=== PATIENT | female | born 1945 | race Caucasian/White ===

== ENCOUNTER 2020-08-03 09:22 | Outpatient (CLI) | payer MEDICARE, SELFPAY ==
--- NOTE | ~2020-08-03 | MM_ITS ---
EXAMINATION: MM screening falguni BI w thomas HISTORY: Screening mammogram, history of right breast cancer TECHNIQUE: Craniocaudal and mediolateral oblique 3-D tomosynthesis images were obtained and synthetic 2-D images were generated. CAD analysis was submitted and interpreted. COMPARISON: 07/31/2019, 07/04/2018, 06/06/2017 BREAST PARENCHYMAL COMPOSITION: The breasts are almost entirely fatty. FINDINGS: Scattered benign-appearing calcifications are present. There is no evidence of suspicious m ass, calcification, or architectural distortion to suggest malignancy in either breast. There has bee n no suspicious interval change. IMPRESSION: 1. No mammographic evidence of malignancy. 2. Recommend routine screening mammography in one year. BI-RADS Category 2: Benign finding(s). Reviewed, dictated and finalized at location A.
== END 2020-08-03 09:23 | disposition home or self-care (01) ==
LOC: CHSIMG 09:26
PROVIDERS: PCP Internal Medicine; Visit Provider Internal Medicine
DX: Z12.31 Encounter for screening mammogram for malignant neoplasm of breast (principal)
CPT/HCPCS: 77063; 77067

== ENCOUNTER 2021-02-15 09:38 | Outpatient (CLI) | payer MEDICARE, SELFPAY ==
[2021-02-15 14:40] LABS: SARS-CoV-2 RNA PCR Negative (Negative)
== END 2021-02-15 09:39 | disposition home or self-care (01) ==
LOC: CHSLAB 09:44
PROVIDERS: PCP Internal Medicine; Visit Provider Internal Medicine Critical Care Medicine
DX: Z01.812 Encounter for preprocedural laboratory examination (principal); Z20.822 Contact with and (suspected) exposure to COVID-19
CPT/HCPCS: C9803; U0003; U0005

== ENCOUNTER 2021-02-19 19:39 | Outpatient (CLI) | payer MEDICARE, SELFPAY ==
--- NOTE | 2021-02-25 16:42 | WPDSLEEPSTUD ---
Sleep Study Ordering Provider: Sudhir Galvez MD Interpreting Physician: Parish Barnett MD Sleep Study Type: Split Polysomnogram Height: 1.55 m Weight: 91.172 kg Body Mass Index: 38.0 Neck Circumference (inches): 16.5 [place]: 2 Reason for Sleep Study Patient reports history of loud snoring, poor quality of sleep, history of falling asleep during daytime and non refreshing sleep. Sleep History Loud snoring, non-refreshing sleep and daytime sleepiness. FORMERLY [facility], [facility] Past Medical History Medical History (Updated 11/09/20 @ 13:43 by David Kennedy DO) Arthritis Hyperlipemia Hypertension Surgical History Surgical History H/O cataract extraction H/O: S/P medial meniscus repair of left knee Status post right knee replacement Family History Family History Mother Cerebrovascular accident Father Family history of congestive heart failure Other Family history of arthritis Family history of malignant neoplasm Hypertension Social History Social History Smoking status: Former smoker Alcohol intake: current Spiritual care concerns: No Medications Home Medications Medication Instructions Recorded Confirmed Type acetaminophen 300 mg-codeine 15 mg 1 tablet PO Q6H PRN 02/03/20 11/09/20 History tablet acetaminophen 500 mg tablet 500 mg PO Q6H PRN 02/03/20 11/09/20 History amlodipine 10 mg tablet 10 mg PO DAILY 02/03/20 11/09/20 History aspirin 81 mg chewable tablet 81 mg PO DAILY 02/03/20 11/09/20 History diphenhydramine HCl 25 mg capsule 50 mg PO Q6H PRN cap 02/03/20 11/09/20 History evnruyxexle-ugulyufeuph-nks C-hannah tablet PO 02/03/20 11/09/20 History 250 mg-200 mg-30 mg-2.5 mg tablet magnesium oxide 500 mg capsule 500 mg PO DAILY 02/03/20 11/09/20 History nortriptyline 10 mg capsule 30 mg PO DAILY cap 02/03/20 11/09/20 History bxbff-2e-goq-epa-fish oil-vit D3 cap PO 02/03/20 11/09/20 History 350 mg-400 mg-1,000 unit capsule spironolactone 50 mg tablet 50 mg PO DAILY 02/03/20 11/09/20 History atorvastatin 40 mg tablet 40 mg PO DAILY #90 tablet 05/01/20 11/09/20 Rx ascorbic acid (vitamin C) 250 mg 250 mg PO DAILY 05/11/20 11/09/20 History tablet garlic 200 mg tablet 200 mg PO DAILY 05/11/20 11/09/20 History memantine 10 mg tablet 10 mg PO QPM 05/11/20 11/09/20 History multivitamin with minerals 1 tablet PO DAILY 05/11/20 11/09/20 History metformin 500 mg tablet 500 mg PO BID 11/09/20 11/09/20 History Sleep Procedure Patient underwent an overnight polysomnographic evaluation using a split night protocol. Sleep Architecture Diagnostic study - total recording time 197 minutes, total sleep time 137 minutes, sleep efficiency 69.7%. Sleep latency 13 minutes, REM latency 173 minutes. Awake after sleep onset 46 minutes, stage N1 9.8%, N2 82.2%, N3 0%, stage R 7 0.9%. Supine sleep 53.8%, supine REM sleep 3.2%. Treatment study- total recording time 240 minutes, total sleep time 205 minutes, sleep efficiency 85.3%. Sleep latency 16 minutes, REM latency 97 minutes. Awake after sleep onset 19 minutes, stage N1 7.8%, N2 66.6%, N3 0%, stage R 20 5.6%. Supine sleep 96.8%, supine REM sleep 15.3%. Respiratory Analysis CMS criteria used Diagnostic study -patient had 15 apneas with index 6.5, 14 obstructive and 1 central. There were 86 hypopneas with index 37.6. AHI 44.1. REM index 77, non-REM index 41.3 supine index 66.5, nonsupine index 18. Treatment study -during titration patient had 25 apneas with index 7.3, 5 obstructive, 20 central. There were 69 hypopneas with index 20.2, AHI 27.5. REM index 52.6, non-REM index 18.9. Supine index 25.1 nonsupine index 101.8. Arousals Diagnostic study- total arousals 125 with index 38.1, spontaneous arousals 26, snores arousals 42, hypopnea arousals 45, apnea arousals
[2021-02-25 17:13] VITALS: BMI 38.0
== END 2021-02-19 19:40 | disposition home or self-care (01) ==
LOC: CHSCSM 19:41
PROVIDERS: PCP Internal Medicine; Visit Provider Internal Medicine
DX: G47.30 Sleep apnea, unspecified (principal)
CPT/HCPCS: 95811

== ENCOUNTER 2021-03-03 14:30 | Outpatient (RCR) | payer MEDICARE, SELFPAY ==
[2021-02-04 12:38] VITALS: BMI 38.8
[2021-02-04 12:44] VITALS: BMI 38.8
== END 2021-04-21 14:54 | disposition home or self-care (01) ==
LOC: ANHDMC 14:30
PROVIDERS: PCP Internal Medicine; Visit Provider Internal Medicine
DX: E11.9 Type 2 diabetes mellitus without complications (principal); I10 Essential (primary) hypertension; Z71.89 Other specified counseling; Z71.3 Dietary counseling and surveillance
CPT/HCPCS: 97802; G0108; G0109

== ENCOUNTER 2021-05-18 08:55 | Outpatient (RCR) | payer MEDICARE, SELFPAY | END 2021-05-18 10:10 | disposition home or self-care (01) | LOC: ANHDMC 08:55 | PROVIDERS: PCP Internal Medicine; Visit Provider Internal Medicine | DX: E11.9 Type 2 diabetes mellitus without complications (principal); I10 Essential (primary) hypertension; Z71.89 Other specified counseling | CPT/HCPCS: G0108 ==

== ENCOUNTER 2021-07-27 11:42 | Outpatient (CLI) | payer MEDICARE, SELFPAY ==
[2021-07-27 12:49] LABS: SARS-CoV-2 RNA PCR Negative (Negative)
== END 2021-07-27 11:43 | disposition home or self-care (01) ==
LOC: CHSLAB 11:45
PROVIDERS: PCP Internal Medicine; Visit Provider Internal Medicine
DX: Z20.822 Contact with and (suspected) exposure to COVID-19 (principal)
CPT/HCPCS: C9803; U0003; U0005

== ENCOUNTER 2021-08-06 08:19 | Outpatient (CLI) | payer MEDICARE, SELFPAY ==
--- NOTE | ~2021-08-06 | MM_ITS ---
EXAMINATION: MM screening falguni BI w thomas HISTORY: Screening mammogram TECHNIQUE: Craniocaudal and mediolateral oblique 3-D tomosynthesis images were obtained and synthetic 2-D images were generated. CAD analysis was submitted and interpreted. COMPARISON: 08/03/2020, 07/31/2019, 07/04/2018 bilateral screening mammogram examinations BREAST PARENCHYMAL COMPOSITION: The breasts are almost entirely fatty. FINDINGS: There is no evidence of suspicious mass, calcification, or architectural distortion to sugg est malignancy in either breast. There has been no suspicious interval change. IMPRESSION: 1. No mammographic evidence of malignancy. 2. Recommend routine screening mammography in one year. BI-RADS Category 1: Negative Reviewed, dictated and finalized at location A.
== END 2021-08-06 08:20 | disposition home or self-care (01) ==
LOC: CHSIMG 08:20
PROVIDERS: PCP Internal Medicine; Visit Provider Internal Medicine
DX: Z12.31 Encounter for screening mammogram for malignant neoplasm of breast (principal)
CPT/HCPCS: 77063; 77067

== ENCOUNTER 2021-08-18 08:32 | Outpatient (CLI) | payer MEDICARE, SELFPAY ==
[2021-08-18 08:51] LABS: Basophils Absolute Auto 0.04 K/mm3 (0.00-0.10); Basophils Percent Auto 0.3 % (0.0-1.0); Eosinophils Absolute Auto 0.27 K/mm3 (0.02-0.50); Eosinophils Percent Auto 2.4 % (1.0-6.0); Hemoglobin 14.5 g/dL (11.7-13.8); Immature Granulocyte Absolute 0.03 K/mm3 (0.00-0.00); Immature Granulocyte Percent A 0.3 % (0.0-0.0); Lymphocytes Absolute Auto 2.24 K/mm3 (1.10-4.50); Lymphocytes Percent Auto 19.5 % (18.0-42.0); Mean Corpuscular Hemoglobin 29.5 pg (27.0-31.0); Mean Corpuscular Volume 89.6 fL (78.0-102.0); Mean Platelet Volume 10.6 fl (9.2-11.8); Monocytes Absolute Auto 0.58 K/mm3 (0.10-0.90); Monocytes Percent Auto 5.1 % (2.0-11.0); Neutrophils Absolute Auto 8.3 K/mm3 (1.7-7.2); Neutrophils Percent Auto 72.4 % (50.0-70.0); Platelet Count Result 274 K/mm3 (150-420); Red Blood Count 4.91 M/mm3 (4.20-5.40); Red Cell Distribution Width 14.1 % (11.6-14.4); White Blood Count 11.5 K/mm3 (4.8-10.8)
[2021-08-18 09:25] LABS: Alanine Aminotransferase 29 U/L (14-59); Albumin Level 4.2 g/dL (3.4-5.0); Alkaline Phosphatase 67 U/L (46-116); Anion Gap 11 mmol/L (8-16); Aspartate Amino Transferase 14 U/L (15-37); Bilirubin,Total 0.6 mg/dL (0.00-1.00); Blood Urea Nitrogen 20 mg/dL (7-18); Calcium 9.8 mg/dL (8.5-10.1); Carbon Dioxide 23 mmol/L (21-32); Chloride 104 mmol/L (98-108); Cholesterol 129 mg/dL (0-200); Estimated Glomerular Filt Rate 47; Glucose 123 mg/dL (70-99); HDL Direct 41 mg/dL (40-60); LDL Cholesterol Calculated 59 mg/dL (<130); Osmolality Calculated 289 mOsm/kg (285-295); Potassium 4.4 mmol/L (3.5-5.1); Sodium 138 mmol/L (136-145); Total Protein 7.2 g/dL (6.4-8.2); Triglycerides 145 mg/dL (0-150)
== END 2021-08-18 08:33 | disposition home or self-care (01) ==
PROVIDERS: PCP Internal Medicine; Visit Provider Internal Medicine
DX: E11.9 Type 2 diabetes mellitus without complications (principal); I10 Essential (primary) hypertension
CPT/HCPCS: 36415; 80053; 80061; 83036; 85025

== ENCOUNTER 2022-01-19 08:15 | Outpatient (CLI) | payer MEDICARE, SELFPAY ==
[2022-01-19 08:31] LABS: Basophils Absolute Auto 0.02 K/mm3 (0.00-0.10); Basophils Percent Auto 0.1 % (0.0-1.0); Hematocrit 42.8 % (35.0-42.0); Hemoglobin 13.8 g/dL (11.7-13.8); Immature Granulocyte Absolute 0.13 K/mm3 (0.00-0.00); Immature Granulocyte Percent A 0.9 % (0.0-0.0); Lymphocytes Absolute Auto 1.52 K/mm3 (1.10-4.50); Lymphocytes Percent Auto 10.3 % (18.0-42.0); Mean Corpuscular HGB Conc 32.2 g/dL (32.0-36.0); Mean Corpuscular Hemoglobin 29.7 pg (27.0-31.0); Mean Corpuscular Volume 92.2 fL (78.0-102.0); Mean Platelet Volume 10.3 fl (9.2-11.8); Monocytes Absolute Auto 0.75 K/mm3 (0.10-0.90); Monocytes Percent Auto 5.1 % (2.0-11.0); Neutrophils Absolute Auto 12.3 K/mm3 (1.7-7.2); Neutrophils Percent Auto 83.6 % (50.0-70.0); Platelet Count Result 265 K/mm3 (150-420); Red Blood Count 4.64 M/mm3 (4.20-5.40); Red Cell Distribution Width 13.7 % (11.6-14.4); White Blood Count 14.7 K/mm3 (4.8-10.8)
[2022-01-19 08:45] LABS: Hemoglobin A1C 6.3 % (<5.7)
[2022-01-19 09:10] LABS: Alanine Aminotransferase 40 U/L (14-59); Albumin Level 3.9 g/dL (3.4-5.0); Alkaline Phosphatase 73 U/L (46-116); Anion Gap 9 mmol/L (8-16); Aspartate Amino Transferase 12 U/L (15-37); Bilirubin,Total 0.4 mg/dL (0.00-1.00); Blood Urea Nitrogen 31 mg/dL (7-18); Calcium 9.2 mg/dL (8.5-10.1); Carbon Dioxide 25 mmol/L (21-32); Chloride 102 mmol/L (98-108); Cholesterol 144 mg/dL (0-200); Estimated Glomerular Filt Rate 46; Glucose 123 mg/dL (70-99); HDL Direct 57 mg/dL (40-60); LDL Cholesterol Calculated 73 mg/dL (<130); Osmolality Calculated 289 mOsm/kg (285-295); Potassium 4.6 mmol/L (3.5-5.1); Sodium 136 mmol/L (136-145); Total Protein 6.7 g/dL (6.4-8.2); Triglycerides 69 mg/dL (0-150)
== END 2022-01-19 08:16 | disposition home or self-care (01) ==
PROVIDERS: PCP Internal Medicine; Visit Provider Internal Medicine
DX: D72.829 Elevated white blood cell count, unspecified (principal); E11.9 Type 2 diabetes mellitus without complications; I10 Essential (primary) hypertension
CPT/HCPCS: 36415; 80053; 80061; 83036; 85025

== ENCOUNTER 2022-02-28 12:07 | Outpatient (CLI) | payer MEDICARE, SELFPAY ==
--- NOTE | ~2022-02-28 | CT_ITS ---
EXAMINATION: CT brain wo con DATE: 02/28/2022 12:54 INDICATION: Right-sided headache TECHNIQUE: Computed tomography (CT) of the head was performed without intravenous contrast. The dose- length product was 529.67 mGy-cm. Automated exposure control and iterative reconstruction technique w ere employed. COMPARISON: None FINDINGS: Mild generalized atrophy. There are scattered mild periventricular and subcortical white ma tter changes, most likely related to small vessel ischemic disease (microangiopathy). No acute intrac ranial hemorrhage, infarction, mass or mass effect. Paranasal sinuses and mastoids are pneumatized. T here is intracranial atherosclerosis. IMPRESSION: 1. No acute intracranial abnormality. 2: Chronic age-related findings. Reviewed, dictated and finalized at location A.
--- NOTE | ~2022-02-28 | XR_ITS ---
XR_[id number]_[id number] 02/28/2022 12:52 Indication: Neck pain Procedure: 4 views of the cervical spine Comparison: No prior studies for comparison. Findings: There is disc narrowing and endplate degenerative change at C5-6 and C6-7. There is mild mu ltilevel uncinate and facet hypertrophy. No fracture or traumatic malalignment. No prevertebral soft tissue swelling. Odontoid process is normal. There is carotid atherosclerosis. Impression: 1: Mild-moderate cervical spondylosis. Reviewed, dictated and finalized at location A. Impression: 1: Mild-moderate cervical spondylosis.
== END 2022-02-28 12:08 | disposition home or self-care (01) ==
LOC: CHSIMG 12:10
PROVIDERS: PCP Internal Medicine; Visit Provider Internal Medicine
DX: R51.9 Headache, unspecified (principal); M54.2 Cervicalgia; M47.812 Spondylosis without myelopathy or radiculopathy, cervical region
CPT/HCPCS: 70450; 72040

== ENCOUNTER 2022-05-14 10:13 | Outpatient (CLI) | payer MEDICARE, SELFPAY ==
--- NOTE | ~2022-05-14 | MR_ITS ---
EXAMINATION: MR lumbar spine wo con DATE: 05/14/2022 12:45 INDICATION: LUMBAGO . TECHNIQUE: Magnetic resonance imaging (MRI) of the lumbar spine was performed without intravenous con trast. Sequences included sagittal T2-weighted FSE, sagittal T2-weighted FS FSE, sagittal T1-weighted FSE, and axial T2-weighted FSE. COMPARISON: X-ray lumbar spine 11/27/2018, MR lumbar spine 11/07/2018 FINDINGS: The last fully formed and hydrated disc is designated L5-S1. Modic type I change at L1-2. P rominent epidural fat at multiple levels. Grade 1 anterolisthesis of L4 on L5. Lumbar scoliosis. Conu s terminates at T12/L1. Multilevel disc height loss and dehydration. The following disc levels are sp ecifically discussed: T12-L1: The disc does not extend beyond the endplate margin. There is no facet joint osteoarthritis. There is mild neural foraminal stenosis. There is no central canal stenosis. L1-L2: Moderate diffuse bulge. There is moderate facet joint osteoarthritis. There is mild right and severe left neural foraminal stenosis. There is mild central canal stenosis. L2-L3: Posteriorly directed marginal osteophyte secondary to L2-3 degenerative change and fusion. No significant disc bulge There is severe facet joint osteoarthritis. There is moderate bilateral neural foraminal stenosis. There is moderate central canal stenosis. L3-L4: Large diffuse bulge. There is moderate facet joint osteoarthritis. There is mild bilateral mary ral foraminal stenosis. There is moderate central canal stenosis. L4-L5: Minimal bulge. Degenerative endplate changes with lateral fusion. There is severe facet joint osteoarthritis. There is severe right and no left neural foraminal stenosis. There is severe central canal stenosis. L5-S1: Moderate diffuse bulge. There is moderate facet joint osteoarthritis. There is mild bilateral neural foraminal stenosis. There is mild central canal stenosis. IMPRESSION: 1. Severe central canal stenosis at L4-5. 2. Severe neural foraminal narrowing on the left at L1-2, and on the right at L4-5. 3. Multilevel facet arthropathy. 4. Modic type I changes at L1-2, which can be a source of back pain. Reviewed, dictated and finalized at location K. IMPRESSION: 1. Severe central canal stenosis at L4-5. 2. Severe neural foraminal narrowing on the left at L1-2, and on the right at L 4-5. 3. Multilevel facet arthropathy. 4. Modic type I changes at L1-2, which can be a source of back pain.
== END 2022-05-14 10:14 | disposition home or self-care (01) ==
LOC: CHSIMG 10:14
PROVIDERS: PCP Internal Medicine; Visit Provider Nurse Practitioner Family
DX: M54.50 Low back pain, unspecified (principal); M54.10 Radiculopathy, site unspecified
CPT/HCPCS: 72148

== ENCOUNTER 2022-06-28 15:04 | Outpatient (RCR) | payer MEDICARE, SELFPAY ==
--- NOTE | 2022-06-28 15:03 | PTOPEVAL1 ---
Assessment and note entered by Samara Henley DPT Evaluation Information Assessment Status Evaluation Diagnosis Lumbago Onset 06/23/2022 Subjective Information Pt reports that in 2009 she was moving furniture into a house and she slipped on the rainy ground and fell on back. Pt had immediate pain but pain started to slowly improve over time. Since that time, she reports pain has been increasing again. Pain is located in her lower back.She feels like her legs don't work as well as they should. She ahs a brace that she wears when her pain is higher . She has been receiving injections to help. She reports that standing, walking, and housework ( vacuuming) are painful. For relief, patient puts on brace or places hand against her low back, and uses heating pad. Denies numbness/tingling, denies falls but reports that her foot gets caught a lot more when walking, reports weakness in legs. In regards to bowel/bladder changes since flare-up, pt reports some more recent constipation. Pt likes to spend time with her grandchildren, read, and sew and is still able to complete these activities but has to be more careful and slow. Reported Pain Level Pain Score 5: Self Report Assessment PT Clinical Summary Pt presents to physical therapy with low back pain and demonstrates decreased strength, decreased mobility, decreased core stability, an antalgic gait. These deficits make it more challenging for her to effectively walk and stand as needed for playing with her grandkids and performing household activities like vacuuming. She was provided with an HEP focused on improving mobility , core stability, and strength within her tolerance. She will benefit from skilled PT to facilitate symptom relief, address the aforementioned impairments, and return to functional and recreational activities. Plan of Care Interventions Electrical Stimulation,Gait Training,Hot Pack/Cold Pack,Manual Therapy,Neuro Re-education,Patient/ Caregiver Educati,Therapeutic Activities, Therapeutic Exercise PT Services Indicated Yes Treatment Frequency and 2x week for 10 visits Duration These treatments will address the objective and functional deficits as defined above. The patient will be advanced safely and appropriately in order for the patient to progress towards his/her prior level of function. Additional exercises will
--- NOTE | 2022-07-28 14:06 | PTOPDC ---
Assessment and note entered by Adeline Anderson, PT Evaluation Information Assessment Status Evaluation Diagnosis Lumbago Onset 06/23/22 Subjective Information Meredith Boss reports her lower back pain has improved significantly since initiating PT. She reports 0/10 pain currently and reports pain no greater than 5/10. She states most of her pain is in the morning when she first wakes but it subsides after doing her stretches. She feels she has improved 98% overall. Reported Pain Level Pain Score 0: Self Report Assessment PT Clinical Summary Meredith Boss has completed 10 skilled physical therapy visits for low back pain. She is reporting a 98% overall improvement since initiating PT. She notes she has more pain in the morning but it improves with stretches she learned in PT. She objectively demonstrates improved and pain free ROM, improved core and LE strength, improved hamstring flexibility, and resolved tenderness. She will be discharged to an independent [facility]. Plan of Care Interventions Self-Care/Home Management
== END 2022-07-28 09:44 | disposition home or self-care (01) ==
LOC: CHSPT 15:04
PROVIDERS: PCP Internal Medicine; Visit Provider Anesthesiology Pain Medicine
DX: M54.50 Low back pain, unspecified (principal)
CPT/HCPCS: 97014; 97110; 97161; G0283

== ENCOUNTER 2022-08-01 08:54 | Outpatient (CLI) | payer MEDICARE, SELFPAY ==
[2022-08-01 09:06] LABS: Basophils Absolute Auto 0.07 K/mm3 (0.00-0.10); Basophils Percent Auto 0.7 % (0.0-1.0); Eosinophils Absolute Auto 0.46 K/mm3 (0.02-0.50); Eosinophils Percent Auto 4.7 % (1.0-6.0); Hematocrit 40.1 % (35.0-42.0); Hemoglobin 13.3 g/dL (11.7-13.8); Immature Granulocyte Absolute 0.06 K/mm3 (0.00-0.00); Immature Granulocyte Percent A 0.6 % (0.0-0.0); Lymphocytes Absolute Auto 2.04 K/mm3 (1.10-4.50); Lymphocytes Percent Auto 20.8 % (18.0-42.0); Mean Corpuscular HGB Conc 33.2 g/dL (32.0-36.0); Mean Corpuscular Hemoglobin 31.1 pg (27.0-31.0); Mean Corpuscular Volume 93.9 fL (78.0-102.0); Mean Platelet Volume 10.1 fl (9.2-11.8); Monocytes Absolute Auto 0.73 K/mm3 (0.10-0.90); Monocytes Percent Auto 7.4 % (2.0-11.0); Neutrophils Absolute Auto 6.4 K/mm3 (1.7-7.2); Neutrophils Percent Auto 65.8 % (50.0-70.0); Platelet Count Result 256 K/mm3 (150-420); Red Blood Count 4.27 M/mm3 (4.20-5.40); Red Cell Distribution Width 13.6 % (11.6-14.4); White Blood Count 9.8 K/mm3 (4.8-10.8)
[2022-08-01 09:44] LABS: Hemoglobin A1C 5.9 % (<5.7)
[2022-08-01 09:53] LABS: Alanine Aminotransferase 37 U/L (14-59); Albumin Level 3.8 g/dL (3.4-5.0); Alkaline Phosphatase 77 U/L (46-116); Anion Gap 11 mmol/L (8-16); Aspartate Amino Transferase 16 U/L (15-37); Bilirubin,Total 0.6 mg/dL (0.00-1.00); Blood Urea Nitrogen 27 mg/dL (7-18); Calcium 8.9 mg/dL (8.5-10.1); Carbon Dioxide 23 mmol/L (21-32); Chloride 106 mmol/L (98-108); Estimated Glomerular Filt Rate 40; Glucose 144 mg/dL (70-99); Osmolality Calculated 298 mOsm/kg (285-295); Potassium 4.5 mmol/L (3.5-5.1); Sodium 140 mmol/L (136-145); Total Protein 6.6 g/dL (6.4-8.2)
[2022-08-01 09:59] LABS: CRP < 0.2 mg/dL (0.0-0.9)
== END 2022-08-01 08:55 | disposition home or self-care (01) ==
PROVIDERS: PCP Internal Medicine; Visit Provider Internal Medicine
DX: M25.50 Pain in unspecified joint (principal); I10 Essential (primary) hypertension; E11.9 Type 2 diabetes mellitus without complications
CPT/HCPCS: 36415; 80053; 83036; 85025; 86140

== ENCOUNTER 2022-08-09 11:54 | Outpatient (CLI) | payer MEDICARE, SELFPAY ==
--- NOTE | ~2022-08-09 | MM_ITS ---
EXAMINATION: MM screening falguni BI w thomas HISTORY: Screening TECHNIQUE: Craniocaudal and mediolateral oblique 3-D tomosynthesis images were obtained and synthetic 2-D images were generated. CAD analysis was submitted and interpreted. COMPARISON: No prior mammogram is available for comparison at this institution. BREAST PARENCHYMAL COMPOSITION: There are scattered areas of fibroglandular density. FINDINGS: There is no evidence of suspicious mass, calcification, or architectural distortion to sugg est malignancy in either breast. There has been no suspicious interval change. IMPRESSION: 1. No mammographic evidence of malignancy. 2. Recommend routine screening mammography in one year. BI-RADS Category 1: Negative Reviewed, dictated and finalized at location A.
== END 2022-08-09 11:55 | disposition home or self-care (01) ==
LOC: CHSIMG 11:58
PROVIDERS: PCP Internal Medicine; Visit Provider Internal Medicine
DX: Z12.31 Encounter for screening mammogram for malignant neoplasm of breast (principal)
CPT/HCPCS: 77063; 77067

== ENCOUNTER 2022-10-24 08:30 | Outpatient (CLI) | payer MEDICARE, SELFPAY ==
[2022-10-24 08:46] LABS: Basophils Absolute Auto 0.04 K/mm3 (0.00-0.10); Basophils Percent Auto 0.5 % (0.0-1.0); Eosinophils Absolute Auto 0.26 K/mm3 (0.02-0.50); Hematocrit 39.3 % (35.0-42.0); Hemoglobin 12.7 g/dL (11.7-13.8); Immature Granulocyte Absolute 0.03 K/mm3 (0.00-0.00); Immature Granulocyte Percent A 0.4 % (0.0-0.0); Lymphocytes Absolute Auto 1.94 K/mm3 (1.10-4.50); Lymphocytes Percent Auto 22.6 % (18.0-42.0); Mean Corpuscular HGB Conc 32.3 g/dL (32.0-36.0); Mean Corpuscular Hemoglobin 30.2 pg (27.0-31.0); Mean Corpuscular Volume 93.3 fL (78.0-102.0); Mean Platelet Volume 10.3 fl (9.2-11.8); Monocytes Absolute Auto 0.58 K/mm3 (0.10-0.90); Monocytes Percent Auto 6.8 % (2.0-11.0); Neutrophils Absolute Auto 5.7 K/mm3 (1.7-7.2); Neutrophils Percent Auto 66.7 % (50.0-70.0); Platelet Count Result 261 K/mm3 (150-420); Red Blood Count 4.21 M/mm3 (4.20-5.40); Red Cell Distribution Width 12.5 % (11.6-14.4); White Blood Count 8.6 K/mm3 (4.8-10.8)
[2022-10-24 09:54] LABS: Alanine Aminotransferase 28 U/L (14-59); Albumin Level 3.7 g/dL (3.4-5.0); Alkaline Phosphatase 66 U/L (46-116); Anion Gap 11 mmol/L (8-16); Aspartate Amino Transferase 13 U/L (15-37); Bilirubin,Total 0.5 mg/dL (0.00-1.00); Blood Urea Nitrogen 24 mg/dL (7-18); Calcium 8.9 mg/dL (8.5-10.1); Carbon Dioxide 25 mmol/L (21-32); Chloride 103 mmol/L (98-108); Cholesterol 155 mg/dL (0-200); Estimated Glomerular Filt Rate 44; Glucose 145 mg/dL (70-99); HDL Direct 43 mg/dL (40-60); LDL Cholesterol Calculated 83 mg/dL (<130); Osmolality Calculated 295 mOsm/kg (285-295); Potassium 4.5 mmol/L (3.5-5.1); Sodium 139 mmol/L (136-145); Total Protein 6.5 g/dL (6.4-8.2); Triglycerides 143 mg/dL (0-150)
== END 2022-10-24 08:31 | disposition home or self-care (01) ==
LOC: CHSLAB 08:35
PROVIDERS: PCP Internal Medicine; Visit Provider Internal Medicine
DX: I10 Essential (primary) hypertension (principal); E11.9 Type 2 diabetes mellitus without complications; E78.2 Mixed hyperlipidemia
CPT/HCPCS: 36415; 80053; 80061; 83036; 85025

== ENCOUNTER 2022-11-15 09:12 | Outpatient (CLI) | payer MEDICARE, SELFPAY ==
--- NOTE | ~2022-11-15 | XR_ITS ---
Right Hand Technique: PA, oblique, and lateral views were obtained. Clinical History: Pain Findings: No acute fracture or dislocation is seen. Osseous alignment is anatomic. There is advanced degenerative change at the first carpometacarpal joint. There is mild degenerative change of the DIP joints. Soft tissues are unremarkable. Impression: No fracture or dislocation. Advanced degenerative change of the first carpal metacarpal joint. Mild degenerative change of the DIP joints. Reviewed, dictated and finalized at location . 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 Advanced degenerative change of the first carpal metacarpal joint. Mild degenerative change of the DIP joints.
--- NOTE | ~2022-11-15 | XR_ITS ---
Right wrist Technique: PA, oblique, lateral, and ulnar deviation views were obtained. Clinical History: Pain Findings: No acute fracture or dislocation is seen. Osseous alignment is anatomic. There is advanced degenerative change at the first carpometacarpal joint. Soft tissues are unremarkable. Impression: No fracture or dislocation seen. Advanced degenerative change of the first carpal metacarpal joint. Reviewed, dictated and finalized at location . 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 Advanced degenerative change of the first carpal metacarpal joint.
== END 2022-11-15 09:13 | disposition home or self-care (01) ==
LOC: CHSIMG 09:15
PROVIDERS: PCP Internal Medicine; Visit Provider Internal Medicine
DX: S69.91XA Unspecified injury of right wrist, hand and finger(s), initial encounter (principal)
CPT/HCPCS: 73110; 73130

== ENCOUNTER 2023-01-25 08:25 | Outpatient (CLI) | payer MEDICARE, SELFPAY ==
[2023-01-25 08:41] LABS: Basophils Absolute Auto 0.04 K/mm3 (0.00-0.10); Basophils Percent Auto 0.5 % (0.0-1.0); Eosinophils Absolute Auto 0.19 K/mm3 (0.02-0.50); Eosinophils Percent Auto 2.4 % (1.0-6.0); Hematocrit 39.1 % (35.0-42.0); Hemoglobin 12.7 g/dL (11.7-13.8); Immature Granulocyte Absolute 0.03 K/mm3 (0.00-0.00); Immature Granulocyte Percent A 0.4 % (0.0-0.0); Lymphocytes Absolute Auto 1.56 K/mm3 (1.10-4.50); Lymphocytes Percent Auto 19.8 % (18.0-42.0); Mean Corpuscular HGB Conc 32.5 g/dL (32.0-36.0); Mean Corpuscular Hemoglobin 30.2 pg (27.0-31.0); Mean Corpuscular Volume 92.9 fL (78.0-102.0); Mean Platelet Volume 10.7 fl (9.2-11.8); Monocytes Absolute Auto 0.59 K/mm3 (0.10-0.90); Monocytes Percent Auto 7.5 % (2.0-11.0); Neutrophils Absolute Auto 5.5 K/mm3 (1.7-7.2); Neutrophils Percent Auto 69.4 % (50.0-70.0); Platelet Count Result 219 K/mm3 (150-420); Red Blood Count 4.21 M/mm3 (4.20-5.40); Red Cell Distribution Width 13.9 % (11.6-14.4); White Blood Count 7.9 K/mm3 (4.8-10.8)
[2023-01-25 09:20] LABS: Alanine Aminotransferase 31 U/L (14-59); Albumin Level 3.9 g/dL (3.4-5.0); Alkaline Phosphatase 72 U/L (46-116); Anion Gap 11 mmol/L (8-16); Aspartate Amino Transferase 15 U/L (15-37); Bilirubin,Total 0.5 mg/dL (0.00-1.00); Blood Urea Nitrogen 27 mg/dL (7-18); Calcium 9.3 mg/dL (8.5-10.1); Carbon Dioxide 23 mmol/L (21-32); Chloride 105 mmol/L (98-108); Estimated Glomerular Filt Rate 47; Glucose 122 mg/dL (70-99); Osmolality Calculated 294 mOsm/kg (285-295); Potassium 4.2 mmol/L (3.5-5.1); Sodium 139 mmol/L (136-145); Total Protein 6.8 g/dL (6.4-8.2)
== END 2023-01-25 08:26 | disposition home or self-care (01) ==
LOC: CHSLAB 08:27
PROVIDERS: PCP Internal Medicine; Visit Provider Internal Medicine
DX: I10 Essential (primary) hypertension (principal); N18.2 Chronic kidney disease, stage 2 (mild)
CPT/HCPCS: 36415; 80053; 85025

== ENCOUNTER 2023-03-23 08:12 | Outpatient (CLI) | payer MEDICARE, SELFPAY ==
--- NOTE | ~2023-03-23 | MR_ITS ---
EXAMINATION: MR cervical spine wo con DATE: 03/23/2023 09:04 INDICATION: Neck pain. Bilateral upper extremity radiculopathy. TECHNIQUE: Magnetic resonance imaging (MRI) of the cervical spine was performed without intravenous c ontrast. Sequences included sagittal T2-weighted FSE, sagittal T2-weighted FS FSE, sagittal T1-weight ed FSE, axial MERGE, and axial T2-weighted FSE. COMPARISON: None FINDINGS: There is 6 degrees dextrocurvature of cervical spine. Vertebral body heights are normal. Th ere is mildly decreased disc height at C4-C5 and severely decreased disc height at C5-C6 and C6-C7. T he spinal cord signal intensity is normal. The following disc levels are specifically discussed: C2-C3: The disc does not extend beyond the endplate margin. There is no uncovertebral joint osteoarth ritis. There is moderate bilateral facet joint osteoarthritis. There is no neural foraminal stenosis. There is no central canal stenosis. C3-C4: There is a central extrusion. There is mild bilateral uncovertebral joint osteoarthritis. Ther e is severe right and mild left facet joint osteoarthritis. There is mild right neural foraminal sten osis. There is no central canal stenosis. C4-C5: The disc is bulging. There is mild bilateral uncovertebral joint osteoarthritis. There is mode rate bilateral facet joint osteoarthritis. There is mild bilateral neural foraminal stenosis. There i s mild central canal stenosis with ventral indentation of the spinal cord. C5-C6: The disc is bulging. There is severe bilateral uncovertebral joint osteoarthritis. There is se tianna bilateral facet joint osteoarthritis. There is mild right and moderate left neural foraminal frank nosis. There is mild central canal stenosis with ventral indentation of the spinal cord. C6-C7: The disc is bulging. There is severe bilateral uncovertebral joint osteoarthritis. There is se tianna bilateral facet joint osteoarthritis. There is mild bilateral neural foraminal stenosis. There i s mild central canal stenosis. C7-T1: The disc does not extend beyond the endplate margin. There is no uncovertebral joint osteoarth ritis. There is severe bilateral facet joint osteoarthritis. There is no neural foraminal stenosis. T here is no central canal stenosis. IMPRESSION: 1. Severe cervical spondylosis. Reviewed, dictated and finalized at location A.
== END 2023-03-23 08:13 | disposition home or self-care (01) ==
LOC: CHSIMG 08:14
PROVIDERS: PCP Internal Medicine; Visit Provider Internal Medicine
DX: M54.2 Cervicalgia (principal); M54.12 Radiculopathy, cervical region; M43.02 Spondylolysis, cervical region
CPT/HCPCS: 72141

== ENCOUNTER 2023-07-06 17:30 | Emergency (ER) | payer MEDICARE, SELFPAY ==
--- NOTE | ~2023-07-06 | XR_ITS ---
EXAMINATION: XR wrist RT min 3V INDICATION: Right wrist pain TECHNIQUE: Four views of the right wrist are obtained. COMPARISON: 11/15/2022 FINDINGS: There is advanced osteoarthritis at the first carpometacarpal joint. No fracture is identif ied. Calcified atherosclerosis is noted. IMPRESSION: 1. Advanced osteoarthritis at the first carpometacarpal joint without acute osseous abnormality ident ified. Reviewed, dictated and finalized at location F. IMPRESSION: 1. Advanced osteoarthritis at the first carpometacarpal joint without acute oss eous abnormality identified.
--- NOTE | ~2023-07-06 | XR_ITS ---
EXAMINATION: XR shoulder RT min 2V INDICATION: Right shoulder pain TECHNIQUE: Three views of the right shoulder are submitted. COMPARISON: None FINDINGS: There is anterior and inferior dislocation of the humeral head with respect to the glenoid. Moderate osteoarthritis is noted at the acromioclavicular joint. No fracture is identified. Soft tis sues are unremarkable. IMPRESSION: 1. Anterior and inferior dislocation of the humeral head with respect to the glenoid. Reviewed, dictated and finalized at location F. IMPRESSION: 1. Anterior and inferior dislocation of the humeral head with respect to the gl enoid.
--- NOTE | ~2023-07-06 | XR_ITS ---
EXAMINATION: XR shoulder RT min 2V INDICATION: Post reduction TECHNIQUE: Three views of the right shoulder are submitted. COMPARISON: 1755 hours FINDINGS: The previously described glenohumeral dislocation has been reduced. No definite fracture is identified. There is moderate to severe osteoarthritis of the glenohumeral joint and moderate osteoa rthritis of the acromioclavicular joint. Soft tissues are unremarkable. IMPRESSION: 1. Reduced glenohumeral dislocation. Reviewed, dictated and finalized at location F.
[2023-07-06 17:30] VITALS: BP 150/79; PULSE 77; RESP 18; TEMP 36.6; O2SAT 98
[2023-07-06] MEDS: KETOROLAC 30 MG/ML VIAL (*BKC) IM (17:52)
[2023-07-06] MEDS: MORPHINE SULFATE (*CRX) 2 MG/ML INJ IV PUSH (18:14)
--- NOTE | 2023-07-06 18:35 | PC.NURSE ---
1830 right shoulder manipulation per dr damian after morphine. pt feeling better, pain decreased. awaiting repeat xray.
--- NOTE | 2023-07-06 18:56 | ED.UPPEXIN ---
HPI - Extremity Injury (Upper) General Chief Complaint: Extremity Injury, Upper Stated Complaint: fall; right wrist and shoulder pain Time Seen by Provider: 07/06/23 17:37 Source: patient and family Mode of arrival: ambulatory Limitations: no limitations History of Present Illness HPI narrative: this is a 78-year-old female that fell on an outstretched hand earlier this evening causing pain in her right wrist and right shoulder having difficulty with movement there is some numbness and tingling in her fingers but has a strong brisk radial pulse on the right pain level about an 8/10. The patient tripped and fell forward on her right outstretched hand there is some tenderness in the anterior aspect of her right shoulder with a mild deformity. MD complaint: injury to: right Onset (ago): hour(s) Other Extremity Injury: Right: shoulder ( pain and tenderness) Place: home Severity: moderate Severity scale (1-10): 8 Relieving factors: immobilization Exacerbating factors: movement of extremity Context: fall Related Data Home Medications Medication Instructions Recorded Confirmed acetaminophen 300 mg-codeine 15 mg 1 tablet PO Q6H PRN 02/03/20 05/24/21 tablet acetaminophen 500 mg tablet 500 mg PO Q6H PRN 02/03/20 05/24/21 (Tylenol Extra Strength) amlodipine 10 mg tablet 10 mg PO DAILY 02/03/20 05/24/21 aspirin 81 mg chewable tablet 81 mg PO DAILY 02/03/20 05/24/21 diphenhydramine HCl 25 mg capsule 50 mg PO Q6H PRN 02/03/20 05/24/21 (Benadryl) cvwwdwrsdwh-dmwwjlmjomx-jkw C-hannah tablet PO 02/03/20 05/24/21 250 mg-200 mg-30 mg-2.5 mg tablet magnesium oxide 500 mg capsule 500 mg PO DAILY 02/03/20 05/24/21 nortriptyline 10 mg capsule 30 mg PO DAILY 02/03/20 05/24/21 gfbdy-4w-kix-epa-fish oil-vit D3 cap PO 02/03/20 05/24/21 350 mg-400 mg-1,000 unit capsule spironolactone 50 mg tablet 50 mg PO DAILY 02/03/20 05/24/21 ascorbic acid (vitamin C) 250 mg 250 mg PO DAILY 05/11/20 05/24/21 tablet garlic 200 mg tablet 200 mg PO DAILY 05/11/20 05/24/21 memantine 10 mg tablet 10 mg PO QPM 05/11/20 05/24/21 multivitamin with minerals 1 tablet PO DAILY 05/11/20 05/24/21 (Hair,Skin and Nails tablet) metformin 500 mg tablet 500 mg PO DAILY 05/24/21 05/24/21 semaglutide 3 mg tablet 3 mg PO DAILY 05/24/21 05/24/21 Allergies Allergy/AdvReac Type Severity Reaction Status Date / Time neomycin Allergy Severe BLISTERS Verified 12/10/21 11:31 AND ITCHING adhesive Allergy Unknown Unknown Verified 12/10/21 11:31 adhesive tape Allergy Unknown Unknown Verified 12/10/21 11:31 bacitracin Allergy Unknown Unknown Verified 12/10/21 11:31 Bleach (Sodium Hypochlorite) Allergy Unknown Unknown Verified 12/10/21 11:31 polymyxin B Allergy Unknown Unknown Verified 12/10/21 11:31 BLEACH Allergy Unknown SKIN Uncoded 12/10/21 11:31 IRRITATION Review of Systems Review of Systems: All systems reviewed & are unremarkable except as noted in HPI and below PMFSH Past Medical History Medical History (Updated 07/06/23 @ 19:03 by Wes Gooden MD) Arthritis Hyperlipemia Hypertension Surgical History Surgical History H/O cataract extraction H/O: S/P medial meniscus repair of left knee Status post right knee replacement Family History Family History Mother Cerebrovascular accident Father Family history of congestive heart failure Other Family history of arthritis Family history of malignant neoplasm Hypertension Social History Social History Smoking status: Former smoker (quit 2015 or 2018) Alcohol intake: current Spiritual care concerns: No Exam Const: General: healthy appearing Nutritional Appearance: well nourished HENMT: Head: normal to inspection Eyes: Conjunctivae: conjunctivae normal Pupils: Equal, round and reactive pupils presen
--- NOTE | 2023-07-06 18:56 | PC.NURSE ---
report to chloe cueva. all questions answered.
[2023-07-06 19:06] VITALS: BP 132/89; PULSE 77; RESP 16; TEMP 36.6; O2SAT 98
== END 2023-07-06 19:13 | disposition home or self-care (01) ==
PROVIDERS: Emergency Provider Emergency Medicine; PCP Internal Medicine
DX: S43.014A Anterior dislocation of right humerus, initial encounter (principal); E78.5 Hyperlipidemia, unspecified; I10 Essential (primary) hypertension; Z87.891 Personal history of nicotine dependence; W01.0XXA Fall on same level from slipping, tripping and stumbling without subsequent striking against object, initial encounter; Y92.009 Unspecified place in unspecified non-institutional (private) residence as the place of occurrence of the external cause
CPT/HCPCS: 23650; 73030; 73110; 96372; 96374; 99285; A4565; J1885; J2270

== ENCOUNTER 2023-07-13 06:47 | Outpatient (CLI) | payer MEDICARE, SELFPAY ==
--- NOTE | ~2023-07-13 | MR_ITS ---
MRI of the right shoulder Technique: Axial proton-density fat-sat images, coronal proton density fat-sat and T2 fat-sat images, and sagittal T1-weighted and T2 fat-sat images were acquired. 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 There is severe AC joint degenerative change. Coracoclavi cular ligaments are intact. Coracoacromial and coracohumeral ligaments are probably intact. There is complete, full-thickness tear of the supraspinatus tendon. Infraspinatus tendon is intact. S ubscapularis tendon is intact with moderate tendinosis. The intra-articular biceps tendon is probably intact, with severe tendinosis. There is probable degenerative SLAP tear of the labrum, probably extending to the equator anteriorly and posteriorly. There is probable rupture of the inferior glenohumeral ligament at its midportion. There is prominent soft tissue edema extending inferiorly from the glenohumeral joint into the axillary space. Fluid al so passes through the rotator cuff defect into the subacromial/subdeltoid bursa. There is also fluid distention of the subcoracoid bursa. There are probable small loose bodies in the subcoracoid bursa. There is probable atrophy of the supraspinatus muscle belly. There is probable moderate degenerative change of the glenohumeral joint, with extensive chondromalacia. Impression: Complete, full-thickness tear of the supraspinatus tendon, with associated atrophy of the supraspinat us muscle belly. Degenerative SLAP tear of the labrum, probably extending to the greater anteriorly and posteriorly. Left shoulder the inferior glenohumeral ligament at its midportion. This could be related to history of dislocation. Moderate degenerative change of the glenohumeral joint. Severe degenerative change of the AC joint wi th persistent os acromiale. Subcoracoid bursitis with small loose bodies in the subcoracoid bursa. Reviewed, dictated and finalized at location . Impression: Complete, full-thickness tear of the supraspinatus tendon, with associated atro phy of the supraspinatus muscle belly. Degenerative SLAP tear of the labrum, probably extending to the greater anterio rly and posteriorly. Left shoulder the inferior glenohumeral ligament at its midportion. This could be related to history of dislocation. Moderate degenerative change of the glenohumeral joint. Severe degenerative yoanna nge of the AC joint with persistent os acromiale. Subcoracoid bursitis with small loose bodies in the subcoracoid bursa.
== END 2023-07-13 06:48 | disposition home or self-care (01) ==
PROVIDERS: PCP Internal Medicine; Visit Provider Internal Medicine
DX: S43.004A Unspecified dislocation of right shoulder joint, initial encounter (principal); S46.811A Strain of other muscles, fascia and tendons at shoulder and upper arm level, right arm, initial encounter; S43.431A Superior glenoid labrum lesion of right shoulder, initial encounter; M75.51 Bursitis of right shoulder
CPT/HCPCS: 73221

== ENCOUNTER 2023-07-24 10:57 | Outpatient (RCR) | payer MEDICARE, SELFPAY ==
--- NOTE | 2023-07-24 12:02 | PTOPEVAL1 ---
Assessment and note entered by Wes Franklin Evaluation Information Assessment Status Evaluation Diagnosis anterior dislocation right shoulder, right shoulder pain Onset 07/05/23 Subjective Information Pt. reports that she tripped while at home landing on the right arm and dislocating the right shoulder. She went to the ER and the arm was relocated. She states that she saw the ortho last week and was told to begin therapy. She reports that she is having pain through the described lateral brachial region. She describes a dull ache in this area. She states that she is having trouble reaching overhead and behind her back. She reports she cannot currently grape picker a gallon of milk. She is having her assist her with dressing. She reports she is right hand dominant. She states that her goal is to decrease her pain and improve her mobility. Reported Pain Level Pain Score 8: Self Report Assessment PT Clinical Summary Pt. is a 78 year old female who enters the clinic following anterior dislocation of the shoulder. She presents with impaired strength, impaired ROM and pain on this date. Continued skilled PT is indicated in order to improve these areas to allow the pt. to be able to complete all IADL's without assistance from her . Plan of Care Interventions Electrical Stimulation,Hot Pack/Cold Pack,Manual Therapy,Neuro Re-education,Therapeutic Activities, Therapeutic Exercise PT Services Indicated Yes Treatment Frequency and 3x/week x 12 visits Duration These treatments will address the objective and functional deficits as defined above. The patient will be advanced safely and appropriately in order for the patient to progress towards his/her prior level of function. Additional exercises will be introduced and as well as a comprehensive home exercise program upon discharge, if needed, ?to ensure carryover of functional gains achieved in the clinic. This treatment plan has been reviewed and agreement upon by the patient.
--- NOTE | 2023-07-24 12:03 | OPREHPOC ---
Outpatient Therapy Plan of Care This is a Multidisciplinary Plan of Care that may contain components documented by all disciplines (PT, OT, and ST.) PT Problem 1 PT Problem #1 Knowledge Deficit PT Goal 1 Goal Pt. will be independent with a HEP addressing strength and mobility. Target Visit 2 PT Problem 2 PT Problem #2 Impaired Range of Motion PT Goal 1 Goal -Pt. will be able to reach to 145 degrees active right shoulder flexion against gravity -pt. will be able to reach the occiput with the right u.e. -pt. will be able to reach the mid thoracic region with the right u.e. Target Visit 12 PT Goal 2 Goal Pt. will complete all dressing without assistance from her . Target Visit 12 PT Problem 4 PT Problem #4 Impaired Strength PT Goal 1 Goal Pt. will present with 4+/5 gross right u.e. strength.
--- NOTE | 2023-08-14 10:21 | PTOPEVAL1 ---
Assessment and note entered by Wes Franklin Evaluation Information Assessment Status Progress Diagnosis anterior dislocation right shoulder, right shoulder pain Onset 07/05/23 Subjective Information Pt. reports that she is doing better. She states that her pain is less intense. She reports that she is still frustrated Reported Pain Level Pain Score 3: Self Report Assessment PT Clinical Summary pt. has attended a total of 10 treatment sessions. Treatment thus far has focused on improving strength and mobility at the right shoulder. While pt. still struggles with improving movement against gravity, she has demonstrated improvement in regards to lifting the u.e. in a gravity eliminated position indicating gradual strength improvement. Pt. will be attending 1 more treatment session and leave for vacation for a 2 week period. Stressed to the pt. imprving ability to lift the u.e. overhead in gravity eliminated positions and progressing to movement againstr gravity as part of her HEP. We will continue skilled PT at a decreased freqeuncy continuing to improve strength and mobility. Plan of Care Interventions Electrical Stimulation,Hot Pack/Cold Pack,Manual Therapy,Patient/Caregiver Educati,Therapeutic Activities,Therapeutic Exercise PT Services Indicated Yes Treatment Frequency and 1x/week x 6 visits Duration These treatments will address the objective and functional deficits as defined above. The patient will be advanced safely and appropriately in order for the patient to progress towards his/her prior level of function. Additional exercises will be introduced and as well as a comprehensive home exercise program upon discharge, if needed, ?to ensure carryover of functional gains achieved in the clinic. This treatment plan has been reviewed and agreement upon by the patient.
== END 2023-08-16 20:00 | disposition home or self-care (01) ==
LOC: CHSPT 10:57
PROVIDERS: Visit Provider Orthopaedic Surgery
DX: S43.014A Anterior dislocation of right humerus, initial encounter (principal)
CPT/HCPCS: 97014; 97110; 97161; G0283

== ENCOUNTER 2023-08-02 08:23 | Outpatient (CLI) | payer MEDICARE, SELFPAY ==
[2023-08-02 08:55] LABS: Hemoglobin A1C 5.8 % (<5.7)
[2023-08-02 09:10] LABS: Alanine Aminotransferase 15 U/L (14-59); Albumin Level 3.8 g/dL (3.4-5.0); Alkaline Phosphatase 69 U/L (46-116); Anion Gap 13 mmol/L (8-16); Aspartate Amino Transferase 13 U/L (15-37); Bilirubin,Total 0.4 mg/dL (0.00-1.00); Blood Urea Nitrogen 32 mg/dL (7-18); Calcium 9.3 mg/dL (8.5-10.1); Carbon Dioxide 23 mmol/L (21-32); Chloride 105 mmol/L (98-108); Estimated Glomerular Filt Rate 44; Glucose 139 mg/dL (70-99); Osmolality Calculated 300 mOsm/kg (285-295); Potassium 4.2 mmol/L (3.5-5.1); Sodium 141 mmol/L (136-145); Total Protein 6.6 g/dL (6.4-8.2)
== END 2023-08-02 08:24 | disposition home or self-care (01) ==
LOC: CHSLAB 08:25
PROVIDERS: PCP Internal Medicine; Visit Provider Internal Medicine
DX: I10 Essential (primary) hypertension (principal); E11.9 Type 2 diabetes mellitus without complications; N18.2 Chronic kidney disease, stage 2 (mild)
CPT/HCPCS: 36415; 80053; 83036

== ENCOUNTER 2023-09-25 11:43 | Outpatient (CLI) | payer MEDICARE, SELFPAY ==
--- NOTE | ~2023-09-25 | MM_ITS ---
EXAMINATION: MM screening falguni BI w thomas HISTORY: Screening mammogram TECHNIQUE: Craniocaudal and mediolateral oblique 3-D tomosynthesis images were obtained and synthetic 2-D images were generated. CAD analysis was submitted and interpreted. COMPARISON: 08/09/2022, 08/06/2021, 08/03/2020 bilateral screening mammogram examinations BREAST PARENCHYMAL COMPOSITION: There are scattered areas of fibroglandular density. FINDINGS: There is no evidence of suspicious mass, calcification, or architectural distortion to sugg est malignancy in either breast. There has been no suspicious interval change. IMPRESSION: 1. No mammographic evidence of malignancy. 2. Recommend routine screening mammography in one year. BI-RADS Category 1: Negative Reviewed, dictated and finalized at location A. AGE TRUCK DRIVER
== END 2023-09-25 11:44 | disposition home or self-care (01) ==
LOC: CHSIMG 11:44
PROVIDERS: PCP Internal Medicine; Visit Provider Internal Medicine
DX: Z12.31 Encounter for screening mammogram for malignant neoplasm of breast (principal)
CPT/HCPCS: 77063; 77067

== ENCOUNTER 2024-03-11 09:29 | Outpatient (CLI) | payer MEDICARE, SELFPAY ==
[2024-03-11 10:18] LABS: Basophils Absolute Auto 0.02 K/mm3 (0.00-0.10); Basophils Percent Auto 0.3 % (0.0-1.0); Eosinophils Absolute Auto 0.23 K/mm3 (0.02-0.50); Eosinophils Percent Auto 3.2 % (1.0-6.0); Hematocrit 38.1 % (35.0-42.0); Hemoglobin 12.3 g/dL (11.7-13.8); Immature Granulocyte Absolute 0.03 K/mm3 (0.00-0.00); Immature Granulocyte Percent A 0.4 % (0.0-0.0); Lymphocytes Absolute Auto 1.63 K/mm3 (1.10-4.50); Lymphocytes Percent Auto 22.6 % (18.0-42.0); Mean Corpuscular HGB Conc 32.3 g/dL (32-36); Mean Corpuscular Hemoglobin 30.1 pg (27.0-31.0); Mean Corpuscular Volume 93.4 fL (78.0-102.0); Mean Platelet Volume 10.7 fl (9.2-11.8); Monocytes Absolute Auto 0.53 K/mm3 (0.10-0.90); Monocytes Percent Auto 7.4 % (2.0-11.0); Neutrophils Absolute Auto 4.77 K/mm3 (1.70-7.20); Neutrophils Percent Auto 66.1 % (50.0-70.0); Platelet Count Result 232 K/mm3 (150-420); Red Blood Count 4.08 M/mm3 (4.20-5.40); Red Cell Distribution Width 14.1 % (11.6-14.4); White Blood Count 7.2 K/mm3 (4.8-10.8)
[2024-03-11 10:45] LABS: Hemoglobin A1C 5.5 % (<5.7)
[2024-03-11 11:20] LABS: Alanine Aminotransferase 24 U/L (14-59); Albumin Level 3.8 g/dL (3.4-5.0); Alkaline Phosphatase 53 U/L (46-116); Anion Gap 14 mmol/L (4-12); Aspartate Amino Transferase 17 U/L (15-37); Bilirubin,Total 0.4 mg/dL (0.00-1.00); Blood Urea Nitrogen 28 mg/dL (7-18); Carbon Dioxide 23 mmol/L (21-32); Chloride 103 mmol/L (98-108); Estimated Glomerular Filt Rate 42; Glucose 123 mg/dL (70-99); Osmolality Calculated 296 mOsm/kg (285-295); Potassium 4.1 mmol/L (3.5-5.1); Sodium 140 mmol/L (136-145); Total Protein 6.7 g/dL (6.4-8.2)
[2024-03-11 11:25] LABS: CRP < 0.5 mg/dL (0.0-0.9)
[2024-03-11 12:08] LABS: Appearance Urine Clear (Clear); Bilirubin Urine Negative (Negative); Blood Urine Negative (Negative); Color Urine Light Yellow (Yellow); Glucose Urine UA Negative (Negative); Ketones Urine Negative (Negative); Leukocyte Esterase Ur 1+ (Negative); Nitrate Urine Negative (Negative); Protein Urine Trace (Negative); Urobilinogen Urine 0.2 mg/dL (0.2-1.0)
[2024-03-11 12:18] LABS: Add Urine Microscopic? YES; RBC Urine None seen /hpf (0-2); Squamous Epithelial Cell Urine Few /hpf (Few); WBC Urine 0-3 /hpf (0-3)
[2024-03-11 12:19] LABS: Bacteria Urine Trace /hpf
== END 2024-03-11 09:30 | disposition home or self-care (01) ==
LOC: CHSLAB 09:31
PROVIDERS: PCP Internal Medicine; Visit Provider Internal Medicine
DX: E11.9 Type 2 diabetes mellitus without complications (principal); M13.0 Polyarthritis, unspecified
CPT/HCPCS: 36415; 80053; 81001; 83036; 85025; 86140

== ENCOUNTER 2024-10-24 12:04 | Outpatient (CLI) | payer MEDICARE, SELFPAY ==
--- NOTE | ~2024-10-24 | MM_ITS ---
EXAMINATION: MM screening falguni BI w thomas HISTORY: Screening TECHNIQUE: Craniocaudal and mediolateral oblique 3-D tomosynthesis images were obtained and synthetic 2-D images were generated. CAD analysis was submitted and interpreted. COMPARISON: Comparison to multiple prior studies sequentially, with oldest reviewed study dated 07/04. BREAST PARENCHYMAL COMPOSITION: Not dense: There are scattered areas of fibroglandular density. FINDINGS: There is a developing focal asymmetry upper outer quadrant of the right breast, middle thir d. The left breast is stable without evidence for malignancy. IMPRESSION: 1. New right breast asymmetry in the upper outer quadrant, middle third. 2. Additional mammographic views and possible breast ultrasound are recommended. BI-RADS Category 0: Incomplete: Needs additional imaging evaluation. Reviewed, dictated and finalized at location A. PURIFICATION WORKER IMPRESSION: 1. New right breast asymmetry in the upper outer quadrant, middle third. 2. Additional mammographic views and possible breast ultrasound are recommended . BI-RADS Category 0: Incomplete: Needs additional imaging evaluation.
== END 2024-10-24 12:05 | disposition home or self-care (01) ==
LOC: CHSIMG 12:05
PROVIDERS: PCP Internal Medicine; Visit Provider Internal Medicine
DX: Z12.31 Encounter for screening mammogram for malignant neoplasm of breast (principal); R91.8 Other nonspecific abnormal finding of lung field
CPT/HCPCS: 77063; 77067

== ENCOUNTER 2024-10-31 09:01 | Outpatient (CLI) | payer MEDICARE, SELFPAY ==
--- NOTE | ~2024-10-31 | MMUS_ITS ---
EXAMINATION: MM diagnostic falguni RT w thomas, US breast RT limited HISTORY: Right breast asymmetry TECHNIQUE: Additional 3-D tomosynthesis images of the right breast were performed and synthetic 2-D i mages were generated. CAD analysis was submitted and interpreted. High resolution Limited right breas t ultrasound was performed. COMPARISON: Comparison to multiple prior studies sequentially, with oldest reviewed study dated 07/10. BREAST PARENCHYMAL COMPOSITION: Not dense: There are scattered areas of fibroglandular density. FINDINGS: MAMMOGRAPHIC FINDINGS: The area of asymmetry in the upper outer quadrant of the right breast is less apparent with spot comp ression and mediolateral views. No discrete mass or suspicious calcifications are identified. ULTRASOUND: Limited right breast ultrasound: Normal heterogeneous echotexture without focal solid or cystic mass. IMPRESSION: 1. Right breast asymmetry is most likely benign superimposed fibroglandular content. No corresponding abnormality by ultrasound. 2. Recommend 6 month follow-up diagnostic right mammogram BI-RADS category 3, probably benign findings. Reviewed, dictated and finalized at location A. ERY MAKER IMPRESSION: 1. Right breast asymmetry is most likely benign superimposed fibroglandular con tent. No corresponding abnormality by ultrasound. 2. Recommend 6 month follow-up diagnostic right mammogram BI-RADS category 3, probably benign findings.
== END 2024-10-31 09:02 | disposition home or self-care (01) ==
LOC: CHSIMG 09:04
PROVIDERS: PCP Internal Medicine; Visit Provider Internal Medicine
DX: R92.8 Other abnormal and inconclusive findings on diagnostic imaging of breast (principal)
CPT/HCPCS: 76642; 77061; 77065; G0279

== ENCOUNTER 2025-04-16 14:31 | Outpatient (CLI) | payer MEDICARE, SELFPAY ==
--- NOTE | ~2025-04-16 | XR_ITS ---
EXAM/ PROCEDURE: XR lumbar spine 2-3V - 04/16/2025 14:30 CDT HISTORY: 79 years old Female with right hip pain COMPARISON: None available TECHNIQUE: Three view(s) FINDINGS/ IMPRESSION: There are no fractures or dislocations.Multilevel degenerative changes are seen. Levoscoliosis. 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 Atherosclerotic calcifications are seen in the aorta. Reviewed, dictated and finalized at location A.
--- NOTE | ~2025-04-16 | XR_ITS ---
EXAM/ PROCEDURE: XR hip RT min 2V - 04/16/2025 14:30 CDT HISTORY: 79 years old Female with right hip pain COMPARISON: None available TECHNIQUE: Two view(s) FINDINGS/ IMPRESSION: There are no fractures or dislocations.Joint space narrowing, subchondral sclerosis, subchondral cyst formation and osteophyte formation, compatible with mild osteoarthritis. Sclerotic focus in the right pubic symphysis without aggressive surrounding features, is likely a janice ign lesion. Attention on follow-up imaging. Reviewed, dictated and finalized at location A.
--- OUTSIDE RECORDS SUMMARY | 2025-04-16 14:42 | XMS_ITS | Encounter Summary ---
Author Organization [facility] Address [address] [place] [address] Phone Care Team Providers Care Senior Research Project Manager Name Role Phone Sudhir Galvez MD Primary Care Provider [phone] Encounter Details Date Type Department Care Team (Latest Contact Info) Description 03/11/2024 Orders Only [facility] Scanning, Provider Social History Tobacco Use Types Packs/Day Years Used Date Smoking Tobacco: Former Cigarettes 0.5 35 1 974 - 2009 Smokeless Tobacco: Never AUDIT-C Answer Date Recorded Q1: How often do you have a drink containing alc ohol? Monthly or less 12/22/2021 Q2: How many drinks containi ng alcohol do you have on a typical day when you are drinking? 1 or 2 12/22/2021 Q3: How often do you have si x or more drinks on one occasion? 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 Gender Identity Not on file Sexual Orientation Not on file documented as of this encounter Plan of Treatment Not on file documented as of this encounter Procedures Procedure Name Priority Date/Time Associated Diagnosis Comments SCAN - LABS 03/11/2024 documented in this encounter Results * SCAN - LABS (03/11/2024) us Provider Scanning Final Result documented in this encounter Visit Diagnoses Not on filedocumented in this encounter Care Teams Senior Research Project Manager Relationship Specialty Start Date End Date Sudhir Galvez MD PCP - General Internal Medicine 12/07/17 documented as of this encounter
--- OUTSIDE RECORDS SUMMARY | 2025-04-16 14:42 | XMS_ITS | Encounter Summary ---
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
--- OUTSIDE RECORDS SUMMARY | 2025-04-16 14:42 | XMS_ITS | Encounter Summary ---
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
--- OUTSIDE RECORDS SUMMARY | 2025-04-16 14:42 | XMS_ITS | Encounter Summary ---
Author Organization [facility] Address [address] [place] [address] Phone Care Team Providers Care Financial Planner Name Role Phone Sudhir Galvez MD Primary Care Provider [phone] Encounter Details Date Type Department Care Team (Latest Contact Info) Description 08/18/2021 Orders Only [facility] Scanning, Provider Social History Tobacco Use Types Packs/Day Years Used Date Smoking Tobacco: Never Assessed Comments Unknown Sex and Gender Information Value Date Recorded Sex Assigned at Not on file 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 Gender Identity Not on file Sexual Orientation Not on file documented as of this encounter Plan of Treatment Not on file documented as of this encounter Procedures Procedure Name Priority Date/Time Associated Diagnosis Comments SCAN - LABS 08/18/2021 documented in this encounter Results * SCAN - LABS (08/18/2021) us Provider Scanning Edited Result - Final documented in this encounter Visit Diagnoses Not on filedocumented in this encounter Care Teams Financial Planner Relationship Specialty Start Date End Date Sudhir Galvez MD PCP - General Internal Medicine 12/07/17 documented as of this encounter
--- OUTSIDE RECORDS SUMMARY | 2025-04-16 14:42 | XMS_ITS | Referral Summary ---
Author Organization [facility] [address] Address [address] [place] [address] Care Team Providers Care Electric Meter Installer Helper Name Role Phone Sudhir Galvez MD Primary Care Provider [phone] Allergies Active Allergy Reactions Criticality Noted Date Comments Adhesive Blisters High 12/20/2021 Adhesive Tape-Silicones Rash High 12/20/2021 Bleach (Sodium Hypochlorite) Rash Medium 022 Ywbhfsah-Vctrhgjpjh-Qygthtdld Blisters High 2021 Medications methylphenidate HCl (RITALIN) 10 mg tablet 1 Active acetaminophen-c odeine (TYLENOL with CODEINE #3) 300-30 mg per tablet 1 Active memantine (NAMENDA) 10 mg tablet 1 Active hydrALAZINE (APRESOLINE) 25 mg tablet 1 Active atorvastatin (LIPITOR) 40 mg tablet 1 Active spironolactone (ALDACTONE) 50 mg tablet [address] (CYMBALTA) 20 mg capsule 1 Active amLODIPine (NORVASC) 10 mg tablet 1 Active metFORMIN XR (GLUCOPHAGE XR) 500 mg 24 hr tablet 1 Active promethazine (PHENERGAN) 25 mg tablet 1 Active magnesium oxide 400 mg magnesium capsule Take by mouth Active cholecalciferol (VITAMIN D-3) 25 mcg (1,000 unit) tablet Take 1 tablet (1,000 Units total) by mouth daily Active glucosam-chondr oitin-diet cb25 116-100 mg capsule Take by mouth Active ascorbic acid (VITAMIN C) 250 mg tablet Take 1 tablet (250 mg total) by mouth daily Active garlic 1,000 mg capsule Take 2,000 mg by mouth Active multivitamin with minerals tablet Take 1 tablet by mouth daily Active aspirin 81 mg enteric coated tablet Take 1 tablet (81 mg total) by mouth daily Active doxycycline (VIBRAMYCIN) 100 mg capsule Take 1 tablet/capsule (100 mg total) by mouth daily Active donepeziL (ARICEPT) 5 mg tablet 2 tablets (10 mg total) 3 Active ferrous sulfate 325 mg (65 mg of elemental iron) tablet Take 1 tablet (325 mg total) by mouth 2 (two) times a day 3 Active gabapentin (NEURONTIN) 300 mg capsule Take 1 capsule (300 mg total) by mouth daily 3 Active lidocaine (ASPERCREME) 4 % adhesive patch,medicated Apply 1 patch topically daily 3 Active aluminum-magnes ium hydroxide-simet hicone (MAALOX) suspension 200-200-20 mg/5 mL Take 20 mL by mouth every 6 (six) hours as needed 3 Active omeprazole (PriLOSEC) 40 mg capsule Take 1 capsule (40 mg total) by mouth daily 3 Active ranolazine ER (RANEXA) 500 mg 12 hr tablet TAKE ONE TABLET BY MOUTH TWICE A DAY 180 tablet 3 5 Active Active Problems Problem Noted Date Diagnosed Date 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 03/19/2023 HTN (hypertension), benign 09/25/2022 Dyslipidemia 09/25/2022 Social History Tobacco Use Types Packs/Day Years Used Date Smoking Tobacco: Former Cigarettes 0.5 35 1 974 - 2009 Smokeless Tobacco: Never Tobacco Cessation:Counseling Given: Not Answered AUDIT-C Answer Date Recorded Q1: How often [...] on file 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:23 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 Gender Identity Not on file Sexual Orientation Not on file Last Filed Vital Signs Vital Sign Reading Time Taken Comments Blood Pressure 149/68 10/23/2024 2:53 PM BOOKS SALESPERSON Pulse 70 10/23/2024 2:53 PM BOOKS SALESPERSON Temperature 36.7 C (98.1 F) 10/23/2024 2:53 PM BOOKS SALESPERSON Respiratory Rate 26 12/22/2021 7:25 PM CDT Oxygen Saturation 94% 10/23/2024 2:53 PM BOOKS SALESPERSON Inhaled Oxygen Concentration - - Weight 118.4 kg (261 lb) 10/23/2024 2:53 PM BOOKS SALESPERSON Height 157.5 cm (5' 2) 10/23/2024 2:53 PM BOOKS SALESPERSON Body Mass Index 47.74 10/23/2024 2:53 PM BOOKS SALESPERSON Plan of Treatment Not on file Insurance [employer] MEDICARE MEDICARE BEULAH HAITIAN MEDICARE BEULAH HAITIAN Advance Directives For more information, please contact: [phone] * Full Code (Latest Code Status on File) Date Activated Date Inactivated Comments 12/22/2021 6:13 PM 12/23/2021 12:12 AM Care Teams Electric Meter Installer Helper Relationship Specialty Start Date End Date Sudhir Galvez MD PCP - General Internal Medicine 12/07/17
--- OUTSIDE RECORDS SUMMARY | 2025-04-16 14:42 | XMS_ITS | Encounter Summary ---
Author Organization [facility] Address [address] [place] [address] Phone Care Team Providers Care Director Independent Name Role Phone Sudhir Galvez MD Primary Care Provider [phone] Encounter Details Date Type Department Care Team (Latest Contact Info) Description 12/21/2017 Orders Only [facility] Scanning, Provider Social History Tobacco Use Types Packs/Day Years Used Date Smoking Tobacco: Never Assessed Comments Unknown Sex and Gender Information Value Date Recorded Sex Assigned at Not on file 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:23 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 Gender Identity Not on file Sexual Orientation Not on file documented as of this encounter Plan of Treatment Not on file documented as of this encounter Procedures Procedure Name Priority Date/Time Associated Diagnosis Comments CARDIOLOGY DOCUMENT SCAN 12/21/2017 documented in this encounter Results * SCAN - CARDIOLOGY (12/21/2017) Anatomical Region Laterality Modality Other us Provider Scanning CV CARDIAC SERVICES PROCEDURES Final Result documented in this encounter Visit Diagnoses Not on filedocumented in this encounter Care Teams Director Independent Relationship Specialty Start Date End Date Sudhir Galvez MD PCP - General Internal Medicine 12/07/17 documented as of this encounter
--- OUTSIDE RECORDS SUMMARY | 2025-04-16 14:42 | XMS_ITS | Clinical Summary ---
Author Organization [facility] Address [address] [place] [address] Care Team Providers Care Clearance Diver Name Role Phone Sudhir Galvez MD Primary Care Provider [phone] Allergies Active Allergy Reactions Criticality Noted Date Comments Neomycin-Bacitracin Zn-Polymyx Rash High 12/22/2021 Other Reaction(s): Blisters Sodium Hypochlorite Rash Medium 12/22/2021 Tape Rash High 12/20/2021 Other Reaction(s): Blisters Medications Misc Natural Products (GLUCOSAMINE CHOND CMP ADVANCED OR) Take 1 tablet by mouth daily. Active aspirin EC (ECOTRIN) 81 MG tablet Take 1 tablet (81 mg total) by mouth daily. Active metFORMIN ER (GLUCOPHAGE-XR) 500 MG 24 hr tablet Take 1 tablet (500 mg total) by mouth daily with breakfast. 3 Active amLODIPine (NORVASC) 10 MG tablet Take 1 tablet (10 mg total) by mouth daily. 3 Active atorvastatin (LIPITOR) 40 MG tablet Take 1 tablet (40 mg total) by mouth daily. 3 Active ranolazine ER (RANEXA) 500 MG 12 hr tablet Take 1 tablet (500 mg total) by mouth 2 (two) times daily. 3 Active gabapentin (NEURONTIN) 300 MG capsule Take 1 capsule (300 mg total) by mouth 2 (two) times daily. 3 Active memantine (NAMENDA) 10 MG tablet Take 1 tablet (10 mg total) by mouth 2 (two) times daily. 3 Active hydrALAZINE (APRESOLINE) 25 MG tablet Take 1 tablet (25 mg total) by mouth 2 (two) times daily. 3 Active spironolactone (ALDACTONE) 50 MG tablet Take 1 tablet (50 mg total) by mouth daily. 3 Active vitamin D3 (CHOLECALCIFEROL) 25 mcg tablet Take 1 tablet (1,000 Units total) by mouth daily. Active GARLIC OR Take 2,000 mg by mouth daily. Active Ascorbic Acid 250 MG Tab Take 250 mg by mouth 2 (two) times daily. 3 Active ferrous sulfate, 65 mg elemental, 325 (65 FE) MG tablet Take 1 tablet (325 mg total) by mouth 2 (two) times daily. 3 Active fluticasone propionate (FLONASE) 50 MCG/ACT nasal spray 08/07/20 2 3 Active omeprazole (PRILOSEC) 40 MG capsule Take 1 capsule (40 mg total) by mouth daily. 3 Active ondansetron (ZOFRAN-ODT) 4 MG disintegrating tablet Take 1 tablet (4 mg total) by mouth every 8 (eight) hours as needed. 3 Active DULoxetine (CYMBALTA) 20 MG capsule Take 1 capsule (20 mg total) by mouth daily. Active magnesium-aluminum- simethicone (ANTACID REGULAR STRENGTH) 200-200-20 MG/5ML suspension Take 20 mLs by mouth. 3 Active donepezil (ARICEPT) 10 MG Tab Take 1 tablet (10 mg total) by mouth. 3 Active acetaminophen-codei ne (TYLENOL #3) 300-30 MG tablet Take 1 tablet by mouth every 4 (four) hours as needed for Pain. Active Active Problems Problem Noted Date Diagnosed Date Rotator cuff arthropathy, right 10/06/2023 Traumatic complete tear of r ight rotator cuff, subsequent encounter 09/25/2023 Anterior dislocation of righ t shoulder, subsequent encounter 07/19/2023 Social History Tobacco Use Types Packs/Day Years Used Date Smoking Tobacco: Former Cigarettes 0.3 30 Smokeless Tobacco: Never Tobacco Cessation:Counseling Given: Not Answered Alcohol Use Standard Drinks/Week Comments Not Currently 0 (1 standard drink = 0.6 oz pur e alcohol) Comments Unknown Sex and Gender Information Value Date Recorded Sex Assigned at Not on file Legal Sex Female 7:30 PM CDT Gender Identity Not on file Sexual Orientation Not on file Last Filed Vital Signs Vital Sign Reading Time Taken Comments Blood Pressure - - Pulse - - Temperature - - Respiratory Rate - - Oxygen Saturation - - Inhaled Oxygen Concentration - - Weight 84.8 kg (187 lb) 11/22/2023 10:23 AM INSURANCE SERVICE REPRESENTATIVE Height 170.2 cm (5' 7) 11/22/2023 10:23 AM INSURANCE SERVICE REPRESENTATIVE Body Mass Index 29.29 11/22/2023 10:23 AM INSURANCE SERVICE REPRESENTATIVE Plan of Treatment Health Maintenance Due Date Last Done Comments Hepatitis C 1963 Annual Medicare Wellness Visit 2010 Dexa Scan (General) 2010 RSV Immunization or 60+ Years (1 - 1-dose 75+ series) 2020 COVID-19 Vaccine ( season) 2024 07/12/2022, 03/25/2022, 08/11/2021, Additional history exists DTaP, Tdap and Td Vaccines (2 - Td or Tdap) 11/22/2027 11/22/2017 Zoster Vaccines Completed 04/14/2021, 01/06/2021 Pneumococcal Vaccine: 50+ Years Completed 09/06/2023, 09/25/2018, 04/05/2016, Additional history exists Meningococcal B Vaccine Aged Out No l onger eligible based on patient's age to complete this topic Meningococcal Vaccine Aged Out No troy jessica eligible based on patient's age to complete this topic RSV Immunizations Under 20 Months Aged Out No longer eligible based on patient's age to complete this topic Insurance [place] [address] [place] [place] [address] [place] [id number] [employer] Care Teams Clearance Diver Relationship Specialty Start Date End Date Sudhir Galvez MD [address] [place] [address] PCP - General INTERNAL MEDICINE 07/11/23
--- OUTSIDE RECORDS SUMMARY | 2025-04-16 14:42 | XMS_ITS | Encounter Summary ---
Author Organization [facility] Address [address] [place] [address] Phone Care Team Providers Care Spiral Spring Winder Name Role Phone Sudhir Galvez MD Primary Care Provider [phone] Encounter Details Date Type Department Care Team (Latest Contact Info) Description 12/26/2017 Orders Only [facility] Scanning, Provider Social History Tobacco Use Types Packs/Day Years Used Date Smoking Tobacco: Never Assessed Comments Unknown Sex and Gender Information Value Date Recorded Sex Assigned at Not on file 

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
--- OUTSIDE RECORDS SUMMARY | 2025-04-16 14:42 | XMS_ITS | Encounter Summary ---
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
--- OUTSIDE RECORDS SUMMARY | 2025-04-16 14:42 | XMS_ITS | Encounter Summary ---
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 Gender Identity Not on file Sexual Orientation Not on file documented as of this encounter Plan of Treatment Not on file documented as of this encounter Procedures Procedure Name Priority Date/Time Associated Diagnosis Comments SCAN - LABS 08/01/2022 documented in this encounter Results * SCAN - LABS (08/01/2022) us Provider Scanning Final Result documented in this encounter Visit Diagnoses Not on filedocumented in this encounter Care Teams Assistant Produce Manager Relationship Specialty Start Date End Date Sudhir Galvez MD PCP - General Internal Medicine 12/07/17 documented as of this encounter
--- OUTSIDE RECORDS SUMMARY | 2025-04-16 14:42 | XMS_ITS | Encounter Summary ---
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 Gender Identity Not on file Sexual Orientation Not on file documented as of this encounter Plan of Treatment Not on file documented as of this encounter Procedures Procedure Name Priority Date/Time Associated Diagnosis Comments SCAN - LABS 10/24/2022 documented in this encounter Results * SCAN - LABS (10/24/2022) us Provider Scanning Final Result documented in this encounter Visit Diagnoses Not on filedocumented in this encounter Care Teams Bakery Products Checker Relationship Specialty Start Date End Date Sudhir Galvez MD PCP - General Internal Medicine 12/07/17 documented as of this encounter
--- OUTSIDE RECORDS SUMMARY | 2025-04-16 14:42 | XMS_ITS | Patient Health Record ---
Author Organization [facility] Address [address] [place], [place] [address] Care Team Providers Care Structural Fitter Name Role Phone QUINCY BOOTH Unavailable [phone] Sudhir Galvez Unavailable Unavailable Reason For Referral No Information Medications Medication SIG (Take, Route, Frequency, Duration) Notes Start Date End Date Status aspirin 81 MG Delayed Release Oral Tablet [Aspir-Low] ORAL aspirin 81 MG Delayed Release Oral Tablet [Aspir-Low]Original Medicationaspirin 81 MG Delayed Release Oral Tablet [Aspir-Low] *Reorder from [facility] for eRx and Interaction Alerts* 4 Active amlodipine 10 MG Oral Tablet ORAL amlodipine 10 MG Oral TabletOriginal Medicationamlodipine 10 MG Oral Tablet *Reorder from [facility] for eRx and Interaction Alerts* 4 Active dicloxacillin 500 MG Oral Capsule ORAL dicloxacillin 500 MG Oral CapsuleOriginal Medicationdicloxacillin 500 MG Oral Capsule *Reorder from [facility] for eRx and Interaction Alerts* 4 Active Topiramate 25 MG Oral Tablet ORAL topiramate 25 MG Oral TabletOriginal Medicationtopiramate 25 MG Oral Tablet *Reorder from [facility] for eRx and Interaction Alerts* 5 Active Spironolactone 100 MG Oral Tablet ORAL spironolactone 100 MG Oral TabletOriginal Medicationspironolactone 100 MG Oral Tablet *Reorder from [facility] for eRx and Interaction Alerts* 4 Active acetaminophen 500 MG / hydrocodone bitartrate 5 MG Oral Capsule ORAL acetaminophen 500 MG / hydrocodone bitartrate 5 MG Oral CapsuleOriginal Medicationacetaminophen 500 MG / hydrocodone bitartrate 5 MG Oral Capsule *Reorder from [facility] for eRx and Interaction Alerts* 4 Active acetaminophen 24 MG/ML / codeine phosphate 2.4 MG/ML Oral Solution ORAL acetaminophen 24 MG/ML / codeine phosphate 2.4 MG/ML Oral SolutionOriginal Medicationacetaminophen 24 MG/ML / codeine phosphate 2.4 MG/ML Oral Solution *Reorder from [employer] for eRx and Interaction Alerts* 5 Active ropinirole 1 MG Oral Tablet ORAL ropinirole 1 MG Oral TabletOriginal Medicationropinirole 1 MG Oral Tablet *Reorder from [facility] for eRx and Interaction Alerts* 4 Active nortriptyline 10 MG Oral Capsule ORAL nortriptyline 10 MG Oral CapsuleOriginal Medicationnortriptyline 10 MG Oral Capsule *Reorder from [employer] for eRx and Interaction Alerts* 4 Active Plan Of Treatment No Information Insurance Providers Payer Name Payer Address Payer Phone Subscriber Number Group Number Insured Name Patient Relationship to Insured Coverage Start Date Coverage End Date Medicare Part B [place] [address] [place] [address] [id number] JAMMIE JACKSON Self - patient is the insured [employer] [address] [address] [place] [address] [id number] JAMMIE JACKSON Self - patient is the insured [facility] [address] [place], [place] [id number] JAMMIE JACKSON Self - patient is the insured
--- OUTSIDE RECORDS SUMMARY | 2025-04-16 14:42 | XMS_ITS | Clinical Summary ---
Author Organization [facility] Address [address] [place] [address] Phone Care Team Providers Care Pig Farmer Name Role Phone Sudhir Galvez MD Primary Care Provider [phone] Allergies No known active allergies Medications amLODIPine (NORVASC) 10 mg tablet Take 10 mg by mouth daily. Active aspirin (ECOTRIN EC) 81 mg Tablet, Delayed Release (E.C.)Indication s:Start taking ASA from 09/10/2023 Take 81 mg by mouth daily. Active atorvastatin (LIPITOR) 40 mg tablet Take 40 mg by mouth daily. Active cholecalciferol, vitamin D3, 1,000 unit Take 1,000 Units by mouth daily. Active DULoxetine (CYMBALTA) 20 mg Capsule, Delayed Release(E.C.) Take 20 mg by mouth daily. Active gabapentin (NEURONTIN) 300 mg capsule Take 300 mg by mouth daily. Active hydrALAZINE (APRESOLINE) 25 mg tablet Take 25 mg by mouth 2 times daily. Active memantine (NAMENDA) 5 mg Tablet Take 5 mg by mouth 2 times daily. Active metFORMIN (GLUCOPHAGE XR) 500 mg Extended Release 24 hour tablet Take 500 mg by mouth daily. Active oxyCODONE-acetam inophen (PERCOCET) 5-325 mg tablet Take 1 Tablet by mouth every 4 hours as needed for Pain, Moderate. Active ranolazine ER (RANEXA) 500 mg Extended Release 12 hour tablet Take 500 mg by mouth every 12 hours. Active spironolactone (ALDACTONE) 50 mg tablet Take 50 mg by mouth daily. Active docusate sodium (COLACE) 100 mg capsule Take 1 Capsule (100 mg) by mouth 2 times daily as needed for Constipation. 60 Capsule 09/06/2023 4:01 PM PAPER BOX MAKER 3 Active ferrous sulfate 325 mg (65 mg iron) tablet Take 1 Tablet (325 mg) by mouth 2 times daily. 60 Tablet 3 Active aluminum - magnesium - simethicone (MYLANTA) 200-200-20 mg/5 mL Suspension Take 20 mL by mouth every 6 hours as needed for Dyspepsia. 240 mL 3 Active omeprazole (PriLOSEC) 40 mg Capsule, Delayed Release(E.C.) Take 1 Capsule (40 mg) by mouth daily. 60 Capsule 09/06/2023 4:01 PM PAPER BOX MAKER 3 Active ascorbic acid, vitamin C, (VITAMIN C) 250 mg tablet Take 1 Tablet (250 mg) by mouth 2 times daily. 60 Tablet 3 Active ondansetron (ZOFRAN ODT) 4 mg Tablet, Rapid Dissolve Take 1 Tablet (4 mg) by mouth every 8 hours as needed for Nausea/Emesis . Dissolve tablet on top of tongue, then swallow with saliva. 30 Tablet 09/06/2023 4:01 PM PAPER BOX MAKER 3 Active Active Problems Patient Care Coordination No te Formatting of this note migh t be different from the original. GI Dr Kevin Patton Problem Noted Date Diagnosed Date Tubular adenoma of colon-removed 09/05/232022 Encounter for blood typing 09/04/2023 UGIB (upper gastrointestinal bleed) 09/03/2023 Acute blood loss anemia 09/03/2023 KATTY on CPAP 09/03/2023 HTN (hypertension), benign 09/03/2023 HLD (hyperlipidemia) 09/03/2023 Dementia 09/03/2023 DM (diabetes mellitus), type 2 09/03/2023 CAD (coronary atherosclerotic disease) 3 Immunizations Immunization Administration Dates Next Due (PREVNAR 20)(6 WKS UP) PNEUM OCOCCAL CONJUGATE VACCINE 20-VALENT (PCV20), POLYSACCHARIDE [id number] CONJUGATE, ADJUVANT 0.5 ML (PF) IM 09/06/2023 Family History Medical History Relation Name Comments Hypertension Mother Relation Name Status Comments Father Mother Social History Tobacco Use Types Packs/Day Years Used Date Smoking Tobacco: Never Tobacco Cessation:Counseling Given: Not Answered Alcohol Use Standard Drinks/Week Comments Yes 0 (1 standard drink = 0.6 oz pur e alcohol) rarely Feeling Safe Answer Date Recorded Are you in a relationship wi th someone who hurts you emotionally and/or physically? No 09/04/2023 Food Insecurity Answer Date Recorded Social/Environmental Concerns No concerns Transportation Needs Answer Date Record ed Social/Environmental Concerns No concerns Housing Stability Answer Date Recorded Social/Environmental Concerns No concerns Utility Needs Answer Date Recorded Social/Environmental Concerns No concerns Comments Unknown Sex and Gender Information Value Date Recorded Sex Assigned at Not on file Legal Sex Female 4:21 PM PAPER BOX MAKER Gender Identity Not on file Sexual Orientation Not on file Last Filed Vital Signs Vital Sign Reading Time Taken Comments Blood Pressure 112/67 09/06/2023 11:18 AM PAPER BOX MAKER Pulse 78 09/06/2023 11:18 AM PAPER BOX MAKER Temperature 36.5 C (97.7 F) 09/06/2023 11:18 AM PAPER BOX MAKER Respiratory Rate 17 09/06/2023 11:18 AM PAPER BOX MAKER Oxygen Saturation 95% 09/06/2023 11:18 AM PAPER BOX MAKER Inhaled Oxygen Concentration - - Weight 87.2 kg (192 lb 3.2 oz) 09/04/2023 1:51 A M PAPER BOX MAKER Height 154.9 cm (5' 1) 09/04/2023 1:51 AM PAPER BOX MAKER Body Mass Index 36.32 09/04/2023 1:51 AM PAPER BOX MAKER Plan of Treatment Health Maintenance Due Date Last Done Comments DIABETES ANNUAL FOOT EXAM 1963 DIABETES ANNUAL RETINAL EXAM 1963 DIABETES HBA1C Q 6 MONTHS 1963 DIABETES MICROALBUMIN ANNUAL SCREEN 1963 LDL CHOLESTEROL ANNUAL 1963 DTAP/TDAP/TD VACCINES (1 - Tdap) 1964 ZOSTER VACCINE (1 of 2) 1995 OSTEOPOROSIS SCREENING 2010 RSV VACCINE (60+ or ) (1 - 1-dose 75+ series) 2020 INFLUENZA VACCINE (#1) 2025 COLORECTAL SCREENING 09/05/2028 09/05/2023, 09/05/20 23 PNEUMOCOCCAL VACCINE 50+ YEARS Completed 09/06/2023 Procedures Procedure Name Priority Date/Time Associated Diagnosis Comments COLONOSCOPY REPORT 09/05/2023 4: 44 PM PAPER BOX MAKER from Last 3 Months or Most Recently Relevant to Health Maintenance Results * COLONOSCOPY REPORT (09/05/2023 4:44 PM PAPER BOX MAKER) Narrative Procedure Note Teo Wolfe MD - 09/05/2023 4:[address] [facility] GI Patient Name: Meredith Boss Procedure Date: 09/05/2023 Date of : 1945 Admit Type: Inpatient Age: 78 Attending MD: Teo Wolfe MD, Procedure: Colonoscopy Indications: Melena, Iron deficiency anemia secondary to chronic blood loss Patient Profile: 78 y/o female presents for colonoscopy for melena and anemia. Providers: Teo Wolfe MD Referring MD: Sudhir Galvez MD Requesting Provider: Medicines: Monitored Anesthesia Care Complications: No immediate complications. Procedure: After I obtained informed consent, the scope was passed under direct vision. Throughout the procedure, the patient's blood pressure, pulse, and oxygen saturations were monitored continuously. The Colonoscope was introduced through the anus and advanced to the cecum, identified by appendiceal orifice and ileocecal valve. The colonoscopy was somewhat difficult due to restricted mobility of the colon, a redundant colon and the patient's body habitus. Successful completion of the procedure was aided by changing the patient to a supine position and using manual pressure. The patient tolerated the procedure well. The quality of the bowel preparation was evaluated using the BBPS ([place] Bowel Preparation Scale) with scores of: Right Colon = 2 (minor amount of residual staining, small fragments of stool and/or opaque liquid, but mucosa seen well), Transverse Colon = 3 (entire mucosa seen well with no residual staining, small fragments of stool or opaque liquid) and Left Colon = 3 (entire mucosa seen well with no residual staining, small fragments of stool or opaque liquid). The total BBPS score equals 8. The quality of the bowel preparation was good. Findings: Two sessile polyps were found in the rectum and ascending colon. The polyps were 4 to 6 mm in size. These polyps were removed with a cold snare. Resection and retrieval were complete. Verification of patient identification for the specimen was done. Impression: - Two 4 to 6 mm polyps in the rectum and in the ascending colon, removed with a cold snare. Resected and retrieved. - No etiology for GI blood loss found during this exam. Recommendation: - [facility] for [facility]. - Advance diet as tolerated. - Continue present medications. - Await pathology results. - Repeat colonoscopy in 5 years for surveillance based on pathology results (pending clinical course at that time). - A [employer] message and/or a letter will be sent to you summarizing the pathology results. Please call the GI office ([phone]) if you have not heard the results within 2 weeks. - Goal intake of 20-25 grams of fiber per day. This is a combination of dietary fiber (located on nutrition label) as well as supplemental fiber (for example Citrucel, Fibercon, Konsyl or Metamucil) if needed. - Follow-up with local primary MD in [place]. If no improvement in anemia can consider referral to local GI for consideration of video capsule endoscopy. Procedure Code(s): --- Professional --- 15718, Colonoscopy, flexible; with removal of tumor(s), polyp(s), or other lesion(s) by snare technique Diagnosis Code(s): --- Professional --- D12.8, Benign neoplasm of rectum D12.2, Benign neoplasm of ascending colon K92.1, Melena (includes Hematochezia) D50.0, Iron deficiency anemia secondary to blood loss (chronic) CPT copyright 2020 [employer]. All rights reserved. The codes documented in this report are preliminary and upon clinical coder review may be revised to meet current compliance requirements. Teo Wolfe MD 09/05/2023 4:44:03 PM Number of Addenda: 0 Estimated Blood Loss: Estimated blood loss: none. us Teo Wolfe MD GI PROCEDURE ORDERABL ES Final Result from Last 3 Months or Most Recently Relevant to Health Maintenance Insurance MEDICARE PART A AND B [employer] RX Member Subscriber Plan / Payer (Ef fective 2011-Present) Name:Meredith Boss Relation to Subscriber:Self Name:Meredith Boss Payer ID:Not on file Group ID:[id number] Type:RX Medicare Part D Address[address] [place] MEDICARE PART A AND B [employer] SUPP [facility] Advance Directives For more information, please contact: [phone] * Full Code (Latest Code Status on File) Date Activated Date Inactivated Comments 09/03/2023 11:59 PM 09/06/2023 5:42 PM * Default Full Code - Needs Discussion Date Activated Date Inactivated Comments 09/03/2023 11:25 PM 09/03/2023 11:59 PM Care Teams Pig Farmer Relationship Specialty Start Date End Date Sudhir Galvez MD [address] [place] [address] PCP - General Internal Medicine 09/04/23
--- OUTSIDE RECORDS SUMMARY | 2025-04-16 14:42 | XMS_ITS | Clinical Summary ---
Author Organization [facility] [address] Address [address] [place] [address] Care Team Providers Care Patient Care Assistant Name Role Phone Sudhir Galvez MD Primary Care Provider [phone] Allergies Active Allergy Reactions Criticality Noted Date Comments Adhesive Blisters High 12/20/2021 Adhesive Tape-Silicones Rash High 12/20/2021 Bleach (Sodium Hypochlorite) Rash Medium 022 Dcguubgx-Pzjunalvpe-Zzhauposq Blisters High 2021 Medications methylphenidate HCl (RITALIN) [...] Diagnosed Date Coronary artery disease invo lving barrow coronary artery of barrow heart without angina pectoris 03/19/2023 HTN (hypertension), benign 09/25/2022 Dyslipidemia 09/25/2022 Surgical History Surgery Date Site/Laterality Comments SECTION BREAST LUMPECTOMY Right REPLACEMENT TOTAL KNEE Bilateral Medical History Medical History Date Comments Hypertension Diabetes mellitus (HCC) KATTY on CPAP Arthritis Dementia (HCC) Hypercholesteremia Family History Medical History Relation Name Comments Alzheimer's disease Sister Relation Name Status Comments Sister Social History Tobacco Use Types Packs/Day Years [...] on file 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:23 PM ONCOLOGY COORDINATOR Gender Identity Not on file Sexual Orientation Not on file Obstetrics History Last Filed Vital Signs Vital Sign Reading Time Taken Comments Blood Pressure 149/68 10/23/2024 2:53 PM ONCOLOGY COORDINATOR Pulse 70 10/23/2024 2:53 PM ONCOLOGY COORDINATOR Temperature 36.7 C (98.1 F) 10/23/2024 2:53 PM ONCOLOGY COORDINATOR Respiratory Rate 26 12/22/2021 7:25 PM CDT Oxygen Saturation 94% 10/23/2024 2:53 PM ONCOLOGY COORDINATOR Inhaled Oxygen Concentration - - Weight 118.4 kg (261 lb) 10/23/2024 2:53 PM ONCOLOGY COORDINATOR Height 157.5 cm (5' 2) 10/23/2024 2:53 PM ONCOLOGY COORDINATOR Body Mass Index 47.74 10/23/2024 2:53 PM ONCOLOGY COORDINATOR Plan of Treatment Health Maintenance Due Date Last Done Comments Depression Screening 1945 Hepatitis C Screening 1945 Osteoporosis Screening-Bone Density Scan 1945 Hepatitis B Screening 1963 Well Visit 65+ 2010 Fall Risk Assessment 12/22/2022 12/22/2021 Covid-19 Vaccine (2023-2 5 season) 2024 08/11/2021, 12/18/2020, 11/27/2020 Influenza Vaccine (#1) 2025 , 07/15/2020, 07/08/2019, Additional history exists DTaP/Tdap/Td Vaccine (2 - Td or Tdap) 11/22/2027 11/22/2017 Zoster Vaccine Completed 04/14/2021, 01/06/2021 Pneumococcal vaccine 65+ Completed 023, 09/25/2018, 04/05/2016, Additional history exists Insurance [employer] MEDICARE MEDICARE [facility] MEDICARE [facility] Advance Directives For more information, please contact: [phone] * Full Code (Latest Code Status on File) Date Activated Date Inactivated Comments 12/22/2021 6:13 PM 12/23/2021 12:12 AM Care Teams Patient Care Assistant Relationship Specialty Start Date End Date Sudhir Galvez MD PCP - General Internal Medicine 12/07/17
--- OUTSIDE RECORDS SUMMARY | 2025-04-16 14:42 | XMS_ITS | Encounter Summary ---
Author Organization [facility] Address [address] [place] [address] Phone Care Team Providers Care Machine Burrer Name Role Phone Sudhir Galvez MD Primary Care Provider [phone] Encounter Details Date Type Department Care Team (Latest Contact Info) Description 01/25/2023 Orders Only [facility] Scanning, Provider [...] on file 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:23 PM SOCIAL WORK ADMINISTRATOR Gender Identity Not on file Sexual Orientation Not on file documented as of this encounter Plan of Treatment Not on file documented as of this encounter Procedures Procedure Name Priority Date/Time Associated Diagnosis Comments SCAN - LABS 01/25/2023 documented in this encounter Results * SCAN - LABS (01/25/2023) us Provider Scanning Final Result documented in this encounter Visit Diagnoses Not on filedocumented in this encounter Care Teams Machine Burrer Relationship Specialty Start Date End Date Sudhir Galvez MD PCP - General Internal Medicine 12/07/17 documented as of this encounter
== END 2025-04-16 14:32 | disposition home or self-care (01) ==
PROVIDERS: PCP Internal Medicine; Visit Provider Internal Medicine
DX: R19.09 Other intra-abdominal and pelvic swelling, mass and lump (principal); M25.551 Pain in right hip
CPT/HCPCS: 72100; 73502

== ENCOUNTER 2025-04-18 13:56 | Outpatient (CLI) | payer MEDICARE, SELFPAY ==
--- NOTE | ~2025-04-18 | US_ITS ---
US soft tissue abdomen Ordering provider: Sudhir Galvez MD History: . right mid abd mass/hematoma . TECHNIQUE: Ultrasound images were obtained for the area of concern in the mid abdominal wall Comparison: None. FINDINGS/impression: Fluid collection is seen in the area of concern in the mid abdominal subcutaneous tissue measuring 4. 8 x 6.7 x 2.3 cm suggestive of hematoma or seroma.. Reviewed, dictated and finalized at location A.
--- OUTSIDE RECORDS SUMMARY | 2025-04-18 14:01 | XMS_ITS | Clinical Summary ---
Author Organization [facility] Address [address] [place] [address] Phone Care Team Providers Care Personalization Specialist Name Role Phone Sudhir Galvez MD Primary Care Provider [phone] Allergies No known active allergies Medications amLODIPine [...] for Constipation. 60 Capsule 09/06/2023 4:01 PM CLINICAL IMPLEMENTATION SPECIALIST 3 Active ferrous sulfate 325 mg (65 [...] mouth daily. 60 Capsule 09/06/2023 4:01 PM CLINICAL IMPLEMENTATION SPECIALIST 3 Active ascorbic acid, vitamin C, (VITAMIN C) 250 mg tablet Take 1 Tablet (250 mg) by mouth 2 times daily. 60 Tablet 3 Active ondansetron (ZOFRAN ODT) 4 mg Tablet, Rapid Dissolve Take 1 Tablet (4 mg) by mouth every 8 hours as needed for Nausea/Emesis . Dissolve tablet on top of tongue, then swallow with saliva. 30 Tablet 09/06/2023 4:01 PM CLINICAL IMPLEMENTATION SPECIALIST 3 Active Active Problems Patient Care Coordination [...] PNEUM OCOCCAL CONJUGATE VACCINE 20-VALENT (PCV20), POLYSACCHARIDE [id number] CONJUGATE, ADJUVANT 0.5 ML (PF) IM 09/06/2023 [...] on file Legal Sex Female 4:21 PM CLINICAL IMPLEMENTATION SPECIALIST Gender Identity Not on file Sexual Orientation Not on file Last Filed Vital Signs Vital Sign Reading Time Taken Comments Blood Pressure 112/67 09/06/2023 11:18 AM CLINICAL IMPLEMENTATION SPECIALIST Pulse 78 09/06/2023 11:18 AM CLINICAL IMPLEMENTATION SPECIALIST Temperature 36.5 C (97.7 F) 09/06/2023 11:18 AM CLINICAL IMPLEMENTATION SPECIALIST Respiratory Rate 17 09/06/2023 11:18 AM CLINICAL IMPLEMENTATION SPECIALIST Oxygen Saturation 95% 09/06/2023 11:18 AM CLINICAL IMPLEMENTATION SPECIALIST Inhaled Oxygen Concentration - - Weight 87.2 kg (192 lb 3.2 oz) 09/04/2023 1:51 A M CLINICAL IMPLEMENTATION SPECIALIST Height 154.9 cm (5' 1) 09/04/2023 1:51 AM CLINICAL IMPLEMENTATION SPECIALIST Body Mass Index 36.32 09/04/2023 1:51 AM CLINICAL IMPLEMENTATION SPECIALIST Plan of Treatment Health Maintenance Due Date [...] Comments COLONOSCOPY REPORT 09/05/2023 4: 44 PM CLINICAL IMPLEMENTATION SPECIALIST from Last 3 Months or Most Recently Relevant to Health Maintenance Results * COLONOSCOPY REPORT (09/05/2023 4:44 PM CLINICAL IMPLEMENTATION SPECIALIST) Narrative Procedure Note Teo Wolfe MD - 09/05/2023 4:44 PM CST [facility] GI Patient Name: Meredith Boss Procedure Date: [...] bowel preparation was evaluated using the BBPS ([place] Bowel Preparation Scale) with scores of: Right [...] clinical course at that time). - A [employer] message and/or a letter will be sent to you summarizing the pathology results. Please call the GI office ([phone]) if you have not heard the results within 2 weeks. - Goal intake of 20-25 grams of fiber per day. This is a combination of dietary fiber (located on nutrition label) as well as supplemental fiber (for example Citrucel, Fibercon, Konsyl or Metamucil) if needed. - Follow-up with local primary MD in [place]. If no improvement in anemia can consider referral to local GI for consideration of video capsule endoscopy. Procedure Code(s): --- Professional --- 58016, Colonoscopy, flexible; with removal of tumor(s), polyp(s), or other lesion(s) by snare technique Diagnosis Code(s): --- Professional --- D12.8, Benign neoplasm of rectum D12.2, Benign neoplasm of ascending colon K92.1, Melena (includes Hematochezia) D50.0, Iron deficiency anemia secondary to blood loss (chronic) CPT copyright 2020 [employer]. All rights reserved. The codes documented in this report are preliminary and upon director of residence life review may be revised to meet current compliance requirements. Teo Wolfe MD 09/05/2023 4:44:03 PM Number of Addenda: 0 Estimated Blood Loss: Estimated blood loss: none. us Teo Wolfe MD GI PROCEDURE ORDERABL ES Final Result from Last 3 Months or Most Recently Relevant to Health Maintenance Insurance MEDICARE PART A AND B [place] SU[employer] RX [employer] RX Member Subscriber Plan / Payer (Ef fective 2011-Present) Name:Meredith Boss Relation to Subscriber:Self Name:Meredith Boss Payer ID:Not on file Group ID:[id number] Type:RX Medicare Part D Address: [address] [place] MEDICARE PART A AND B [place] SUPP [facility] Advance Directives For more information, please contact: [phone] * Full Code (Latest Code Status on File) Date Activated Date Inactivated Comments 09/03/2023 11:59 PM 09/06/2023 5:42 PM * Default Full Code - Needs Discussion Date Activated Date Inactivated Comments 09/03/2023 11:25 PM 09/03/2023 11:59 PM Care Teams Personalization Specialist Relationship Specialty Start Date End Date Sudhir Galvez MD [address] [place] [address] PCP - General Internal Medicine 09/04/23
--- OUTSIDE RECORDS SUMMARY | 2025-04-18 14:01 | XMS_ITS | Encounter Summary ---
Author Organization [facility] Address [address] [place] [address] Phone Care Team Providers Care Glove Turner And Former Name Role Phone Sudhir Galvez MD Primary Care Provider [phone] Encounter Details Date Type Department Care Team [...] on file 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:23 PM LOCK STITCH CHANNELER Gender Identity Not on file Sexual Orientation [...] on filedocumented in this encounter Care Teams Glove Turner And Former Relationship Specialty Start Date End Date Sudhir Galvez MD PCP - General Internal Medicine 12/07/17 documented as of this encounter
--- OUTSIDE RECORDS SUMMARY | 2025-04-18 14:01 | XMS_ITS | Patient Health Record ---
Author Organization [facility] Address [address] [place], [place] [address] Care Team Providers Care Spinning Machine Operator Name Role Phone QUINCY BOOTH Unavailable [phone] Sudhir Galvez Unavailable Unavailable Reason For Referral No Information Medications Medication SIG (Take, Route, Frequency, Duration) Notes Start Date End Date Status aspirin 81 MG Delayed Release Oral Tablet [Aspir-Low] ORAL aspirin 81 MG Delayed Release Oral Tablet [Aspir-Low]Original Medicationaspirin 81 MG Delayed Release Oral Tablet [Aspir-Low] *Reorder from [employer] for eRx and Interaction Alerts* 4 Active amlodipine 10 MG Oral Tablet ORAL amlodipine 10 MG Oral TabletOriginal Medicationamlodipine 10 MG Oral Tablet *Reorder from [employer] for eRx and Interaction Alerts* 4 Active dicloxacillin 500 MG Oral Capsule ORAL dicloxacillin 500 MG Oral CapsuleOriginal Medicationdicloxacillin 500 MG Oral Capsule *Reorder from [employer] for eRx and Interaction Alerts* 4 Active Topiramate 25 MG Oral Tablet ORAL topiramate 25 MG Oral TabletOriginal Medicationtopiramate 25 MG Oral Tablet *Reorder from [employer] for eRx and Interaction Alerts* 5 Active Spironolactone 100 MG Oral Tablet ORAL spironolactone 100 MG Oral TabletOriginal Medicationspironolactone 100 MG Oral Tablet *Reorder from [employer] for eRx and Interaction Alerts* 4 Active acetaminophen 500 MG / hydrocodone bitartrate 5 MG Oral Capsule ORAL acetaminophen 500 MG / hydrocodone bitartrate 5 MG Oral CapsuleOriginal Medicationacetaminophen 500 MG / hydrocodone bitartrate 5 MG Oral Capsule *Reorder from [employer] for eRx and Interaction Alerts* 4 Active acetaminophen 24 MG/ML / codeine phosphate 2.4 MG/ML Oral Solution ORAL acetaminophen 24 MG/ML / codeine phosphate 2.4 MG/ML Oral SolutionOriginal Medicationacetaminophen 24 MG/ML / codeine phosphate 2.4 MG/ML Oral Solution *Reorder from [employer] for eRx and Interaction Alerts* 5 Active ropinirole 1 MG Oral Tablet ORAL ropinirole 1 MG Oral TabletOriginal Medicationropinirole 1 MG Oral Tablet *Reorder from [employer] for eRx and Interaction Alerts* 4 Active nortriptyline 10 MG Oral Capsule ORAL nortriptyline 10 MG Oral CapsuleOriginal Medicationnortriptyline 10 MG Oral Capsule *Reorder from [employer] for eRx and Interaction Alerts* 4 Active Plan Of Treatment No Information Insurance Providers Payer Name Payer Address Payer Phone Subscriber Number Group Number Insured Name Patient Relationship to Insured Coverage Start Date Coverage End Date Medicare Part B [place] [address] [place] [address] [id number] JAMMIE JACKSON Self - patient is the insured [employer] [address] [address] [place] [address] [id number] JAMMIE JACKSON Self - patient is the insured [facility] [address] [place], [place] [id number] JAMMIE JACKSON Self - patient is the insured
--- OUTSIDE RECORDS SUMMARY | 2025-04-18 14:01 | XMS_ITS | Encounter Summary ---
Author Organization [facility] Address [address] [place] [address] Phone Care Team Providers Care Site Physician Name Role Phone Sudhir Galvez MD Primary Care Provider [phone] Encounter Details Date Type Department Care Team [...] on file 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:23 PM CHAIN REPAIRER Gender Identity Not on file Sexual Orientation [...] on filedocumented in this encounter Care Teams Site Physician Relationship Specialty Start Date End Date Sudhir Galvez MD PCP - General Internal Medicine 12/07/17 documented as of this encounter
--- OUTSIDE RECORDS SUMMARY | 2025-04-18 14:01 | XMS_ITS | Clinical Summary ---
Author Organization [facility] [address] Address [address] [place] [address] Care Team Providers Care Dolphin Researcher Name Role Phone Sudhir Galvez MD Primary Care Provider [phone] Allergies Active Allergy Reactions Criticality Noted Date Comments Adhesive Blisters High 12/20/2021 Adhesive Tape-Silicones Rash High 12/20/2021 Bleach (Sodium Hypochlorite) Rash Medium 022 Hehxpwgf-Ojexqdbdyv-Ouxsxqtzb Blisters High 2021 Medications methylphenidate HCl (RITALIN) [...] Diagnosed Date Coronary artery disease invo lving duckwater coronary artery of [place] heart without angina pectoris 03/19/2023 HTN (hypertension), [...] on file 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:23 PM SUPERINTENDENT METER 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 Gender Identity Not on file Sexual Orientation Not on file Obstetrics History Last Filed Vital Signs Vital Sign Reading Time Taken Comments Blood Pressure 149/68 10/23/2024 2:53 PM SUPERINTENDENT METER TESTS Pulse 70 10/23/2024 2:53 PM SUPERINTENDENT METER TESTS Temperature 36.7 C (98.1 F) 10/23/2024 2:53 PM SUPERINTENDENT METER TESTS Respiratory Rate 26 12/22/2021 7:25 PM CDT Oxygen Saturation 94% 10/23/2024 2:53 PM SUPERINTENDENT METER TESTS Inhaled Oxygen Concentration - - Weight 118.4 kg (261 lb) 10/23/2024 2:53 PM SUPERINTENDENT METER TESTS Height 157.5 cm (5' 2) 10/23/2024 2:53 PM SUPERINTENDENT METER TESTS Body Mass Index 47.74 10/23/2024 2:53 PM SUPERINTENDENT METER TESTS Plan of Treatment Health Maintenance Due Date [...] 023, 09/25/2018, 04/05/2016, Additional history exists Insurance [employer] MEDICARE MEDICARE [facility] MEDICARE [facility] Advance Directives For more information, please contact: [phone] * Full Code (Latest Code Status on File) Date Activated Date Inactivated Comments 12/22/2021 6:13 PM 12/23/2021 12:12 AM Care Teams Dolphin Researcher Relationship Specialty Start Date End Date Sudhir Galvez MD PCP - General Internal Medicine 12/07/17
--- OUTSIDE RECORDS SUMMARY | 2025-04-18 14:01 | XMS_ITS | Encounter Summary ---
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
--- OUTSIDE RECORDS SUMMARY | 2025-04-18 14:01 | XMS_ITS | Encounter Summary ---
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
--- OUTSIDE RECORDS SUMMARY | 2025-04-18 14:01 | XMS_ITS | Encounter Summary ---
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
--- OUTSIDE RECORDS SUMMARY | 2025-04-18 14:01 | XMS_ITS | Data Portability ---
Author Organization [facility], [address] [place] [address] [place] Address [address] [place] [address] Care Team Providers Care Waybill Clerk Name Role Phone CONSTANCE ROBERTSON Primary Care Provider CORTES MACIAS Primary Care Provider Assessment Encounter Date Assessment Date Assessment LastModified [...] plan. Not available 04/17/2024 14:32:46 10/22/2024 10/22/2024 [place] symptoms of Alzheimer's disease have worsened. Her [...] Appointments Establish ed Patient 20.EST 2024 02:05P M Heather Ron Not available Not available Not available Lab None recorded. Referral None recorded. Procedures None recorded. Surgeries None recorded. Imaging None recorded. Medication Orders donepezil 10 mg tablet 2024 [address] [facility][note 2] [place], [address], 10/22/2024 15:11:34 donepezil 10 mg tablet [address]23 [address] [facility], [facility][note 2] [place], [address], 04/17/2024 14:19:47 Patient TargetsNo targets recorded. Patient InstructionsNo instructions recorded. Reason for Referral None Reported. 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 Medical Equipment None Reported. Allergies Allergen ID Allergen Name Allergen Category Reaction Reaction Severity Criticality Documentation Date Start Date Code Code System Note Provider Name and Address Organization Details Recorded Time 7562188 aspirin medicatio n Not available Not available Not available 11/08/20232022 1191 RxNorm Not Available [facility] 4 03:55:22 0814833 bacitraci n / neomycin / polymyxin B medicatio n Not available Not available Not available 11/08/20232022 06643 9 RxNorm Not Available [facility] 4 03:55:22 8377672 chlorine Not available Not available Not available Not available 11/08/20232022 08417 22 RxNorm Comme nt: Chlor ine A nnota tions : PATTERSON , MAREC A 2022 1:22P M Chlor ine bleac h; ; Not Available [facility] 4 03:55:22 Medications Name Sig Start Date [...] Updated DateTime 5 154.94 cm 37 kg/m2 67466.1 g 70 /min 95 % 95 % 120/78 mm[Hg] Ellen Andrew [facility] 5 14:59:01 Date Recorded Body height Body mass index (BMI) Body weight Heart rate Oxygen saturation Oxygen saturation in Arterial blood by Pulse oximetry Systolic And Diastolic Provider Name and Address Organization Details Last Updated DateTime 4 154.94 cm 34.8 kg/m2 54142.7 1 g 66 /min 95 % 95 % 140/70 mm[Hg] Ayse Arredondo [facility] 4 14:03:46 Social History None recorded. Functional Status None recorded. Mental Status None recorded. Family History Nothing Reported. Medical History No medical history recorded. Gynecological HistoryNo gynecological history recorded. Obstetrics History GPAL:G 0 P 0 0 0 0 Past Encounters Encounter ID Performer Location Encounter Start Date Encounter Closed Date Diagnosis/Indication Diagnosis SNOMED-CT Code Diagnosis ICD10 Code Diagnosis Note [id number] Heather Ron, FLAP MAKER, CHILLER TECHNICIAN [address] [facility] ([place]) [address] [place] [address] 04/17/2024 13:34:32 04/17/2024 14:26:09 Alzheimer's disease 52190660 G30.9 [id number] Heather Ron, FLAP MAKER, CHILLER TECHNICIAN [address] [facility] ([place]) [address] [place] [address] 10/22/2024 14:31:01 10/22/2024 15:24:56 Alzheimer's disease 93599210 G30.9 Health Concerns Section Related Observation LastModified by Organization Detai ls LastModified Time None Recorded Concern Status LastModified by Organization Details LastModified Time None Recorded Advance Directives Directive None Recorded Payers Insurance Date Sequence Insurance Name Policy Number Policy Mccormick Covered Member ID Mccormick Member ID Guarantor Name 04/17/2025 1 [place] Meredith Boss [id number] Meredith Boss 12/11/2024 2 [employer] Alexa Boss [id number] Meredith Boss Notes Date Note Type Note [...] feel steady walking on that. Heather Ron, FLAP MAKER, CHILLER TECHNICIAN [address] [place] [address], [phone], [facility] 04/17/2024 14:33:02 10/22/2024 text/jay Harper is [...] a 22 out of 30. Heather Ron, FLAP MAKER, CHILLER TECHNICIAN [address] [place] [address], [phone], [place] [facility] 10/22/2024 15:27:46 OBGyn Episode No OBEpisode recorded.
--- OUTSIDE RECORDS SUMMARY | 2025-04-18 14:01 | XMS_ITS | Encounter Summary ---
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
--- OUTSIDE RECORDS SUMMARY | 2025-04-18 14:01 | XMS_ITS | Encounter Summary ---
Author Organization [facility] Address [address] [place] [address] Phone Care Team Providers Care Material Damage Appraiser Name Role Phone Sudhir Galvez MD Primary Care Provider [phone] Encounter Details Date Type Department Care Team (Latest Contact Info) Description 12/26/2017 Orders Only [facility] Scanning, Provider Social History Tobacco Use Types Packs/Day Years Used Date Smoking Tobacco: Never Assessed Comments Unknown Sex and Gender Information Value Date Recorded Sex Assigned at Not on file 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:23 PM BLOOD OR BLOOD BANK TECHNICIAN Gender Identity Not on file Sexual [...] on filedocumented in this encounter Care Teams Material Damage Appraiser Relationship Specialty Start Date End Date Sudhir Galvez MD PCP - General Internal Medicine 12/07/17 documented as of this encounter
--- OUTSIDE RECORDS SUMMARY | 2025-04-18 14:01 | XMS_ITS | Encounter Summary ---
Author Organization [facility] Address [address] [place] [address] Phone Care Team Providers Care Ham Boner Name Role Phone Sudhir Galvez MD Primary Care Provider [phone] Encounter Details Date Type Department Care Team (Latest Contact Info) Description 08/18/2021 Orders Only [facility] Scanning, Provider Social History Tobacco Use Types Packs/Day Years Used Date Smoking Tobacco: Never Assessed Comments Unknown Sex and Gender Information Value Date Recorded Sex Assigned at Not on file 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:23 PM STRATEGIC PLANNING DIRECTOR Gender Identity Not on file Sexual Orientation [...] on filedocumented in this encounter Care Teams Ham Boner Relationship Specialty Start Date End Date Sudhir Galvez MD PCP - General Internal Medicine 12/07/17 documented as of this encounter
--- OUTSIDE RECORDS SUMMARY | 2025-04-18 14:01 | XMS_ITS | Encounter Summary ---
Author Organization [facility] Address [address] [place] [address] Care Team Providers Care Floorman Name Role Phone Sudhir Galvez MD Primary Care Provider [phone] Encounter Details Date Type Department Care Team (Late st Contact Info) Description 01/08/[address] [facility] Health Information Management [address] [place] [address] Scanning, Provider Social History Tobacco Use Types Packs/Day Years Used Date Smoking Tobacco: Never Assessed Comments Unknown Sex and Gender Information Value Date Recorded Sex Assigned at Not on file 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:23 PM KINDERGARTNERS HELPER Gender Identity Not on file Sexual Orientation [...] on filedocumented in this encounter Care Teams Floorman Relationship Specialty Start Date End Date Sudhir Galvez MD PCP - General Internal Medicine 12/07/17 documented as of this encounter
--- OUTSIDE RECORDS SUMMARY | 2025-04-18 14:01 | XMS_ITS | Referral Summary ---
Author Organization [facility] [address] Address [address] [place] [address] Care Team Providers Care Fulfillment Mail Clerk Name Role Phone Sudhir Galvez MD Primary Care Provider [phone] Allergies Active Allergy Reactions Criticality Noted Date Comments Adhesive Blisters High 12/20/2021 Adhesive Tape-Silicones Rash High 12/20/2021 Bleach (Sodium Hypochlorite) Rash Medium 022 Odlhaezy-Hqhdtxncfk-Xabqfievt Blisters High 2021 Medications methylphenidate HCl (RITALIN) [...] Diagnosed Date Coronary artery disease invo lving [place] coronary artery of [place] heart without angina pectoris 03/19/2023 HTN (hypertension), [...] on file 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:23 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 Gender Identity Not on file Sexual Orientation Not on file Last Filed Vital Signs Vital Sign Reading Time Taken Comments Blood Pressure 149/68 10/23/2024 2:53 PM MACHINE BILLER Pulse 70 10/23/2024 2:53 PM MACHINE BILLER Temperature 36.7 C (98.1 F) 10/23/2024 2:53 PM MACHINE BILLER Respiratory Rate 26 12/22/2021 7:25 PM CDT Oxygen Saturation 94% 10/23/2024 2:53 PM MACHINE BILLER Inhaled Oxygen Concentration - - Weight 118.4 kg (261 lb) 10/23/2024 2:53 PM MACHINE BILLER Height 157.5 cm (5' 2) 10/23/2024 2:53 PM MACHINE BILLER Body Mass Index 47.74 10/23/2024 2:53 PM MACHINE BILLER Plan of Treatment Not on file Insurance [employer] MEDICARE MEDICARE [place] [employer] MEDICARE [place] [employer] Advance Directives For more information, please contact: [phone] * Full Code (Latest Code Status on File) Date Activated Date Inactivated Comments 12/22/2021 6:13 PM 12/23/2021 12:12 AM Care Teams Fulfillment Mail Clerk Relationship Specialty Start Date End Date Sudhir Galvez MD PCP - General Internal Medicine 12/07/17
--- OUTSIDE RECORDS SUMMARY | 2025-04-18 14:01 | XMS_ITS | Encounter Summary ---
Author Organization [facility] Address [address] [place] [address] Phone Care Team Providers Care Jigman Name Role Phone Sudhir Galvez MD Primary Care Provider [phone] Encounter Details Date Type Department Care Team (Latest Contact Info) Description 12/21/2017 Orders Only [facility] Scanning, Provider Social History Tobacco Use Types Packs/Day Years Used Date Smoking Tobacco: Never Assessed Comments Unknown Sex and Gender Information Value Date Recorded Sex Assigned at Not on file 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:23 PM PHLEBOTOMIST LAB ASSISTANT Gender Identity Not on file Sexual [...] on filedocumented in this encounter Care Teams Jigman Relationship Specialty Start Date End Date Sudhir Galvez MD PCP - General Internal Medicine 12/07/17 documented as of this encounter
--- OUTSIDE RECORDS SUMMARY | 2025-04-18 14:02 | XMS_ITS | Clinical Summary ---
Author Organization [facility] Address [address] [place] [address] Care Team Providers Care Dry Cleaning Teacher Name Role Phone Sudhir Galvez MD Primary Care Provider [phone] Allergies Active Allergy Reactions Criticality Noted Date [...] 84.8 kg (187 lb) 11/22/2023 10:23 AM FENCE INSTALLER Height 170.2 cm (5' 7) 11/22/2023 10:23 AM FENCE INSTALLER Body Mass Index 29.29 11/22/2023 10:23 AM FENCE INSTALLER Plan of Treatment Health Maintenance Due Date [...] age to complete this topic Insurance [place] [address] [place] [address] [place] [id number] [employer] Care Teams Dry Cleaning Teacher Relationship Specialty Start Date End Date Sudhir Galvez MD [address] [place] [address] PCP - General INTERNAL MEDICINE 07/11/23
== END 2025-04-18 13:57 | disposition home or self-care (01) ==
PROVIDERS: PCP Internal Medicine; Visit Provider Internal Medicine
DX: R19.09 Other intra-abdominal and pelvic swelling, mass and lump (principal); M25.551 Pain in right hip
CPT/HCPCS: 76705

== ENCOUNTER 2025-05-01 07:45 | Outpatient (CLI) | payer MEDICARE, SELFPAY ==
--- NOTE | ~2025-05-01 | MM_ITS ---
EXAMINATION: MM diagnostic falguni RT w thomas INDICATION: 79-year old female; BI-RADS 3, short-term follow-up on right breast asymmetry. COMPARISON: 10/31/2024 through 08/03/2020 TECHNIQUE: Digital breast tomosynthesis True lateral view and CC and MLO views of Right breast were o btained with computer-aided detection to assist in interpretation of the study. FINDINGS: There are scattered areas of fibroglandular density. The previously reported focal asymmetry involving the upper outer right breast has resolved in the in terval. IMPRESSION: Negative mammogram. RECOMMENDATION: Annual screening mammography in 6 months BI-RADS 1, NEGATIVE Reviewed, dictated and finalized at location B.
--- OUTSIDE RECORDS SUMMARY | 2025-05-01 07:49 | XMS_ITS | Clinical Summary ---
Author Organization [facility] Address [address] [place] [address] Care Team Providers Care Shot Bagger Name Role Phone Sudhir Galvez MD Primary Care Provider [phone] Allergies Active Allergy Reactions Criticality Noted Date [...] 84.8 kg (187 lb) 11/22/2023 10:23 AM MOLDED RUBBER GOODS CUTTER Height 170.2 cm (5' 7) 11/22/2023 10:23 AM MOLDED RUBBER GOODS CUTTER Body Mass Index 29.29 11/22/2023 10:23 AM MOLDED RUBBER GOODS CUTTER Plan of Treatment Health Maintenance Due Date [...] age to complete this topic Insurance [place] [address] [address] [place] [address] [place] [id number] [employer] [place] Member Subscriber Plan / Payer (Ef fective 2022-Present) Name:Meredith Boss Relation to Subscriber:Self Name:Meredith Boss Payer ID:Not on file Group ID:Not on file Type:Indemnisukhwinder Address: [facility] [address] [place] [address] Care Teams Shot Bagger Relationship Specialty Start Date End Date Sudhri Galvez MD [address] [place] [address] PCP - General INTERNAL MEDICINE 07/11/23
--- OUTSIDE RECORDS SUMMARY | 2025-05-01 07:49 | XMS_ITS | Encounter Summary ---
Author Organization [facility] Address [address] [place] [address] Phone Care Team Providers Care Child And Adolescent Psychiatrist Name Role Phone Sudhir Galvez MD Primary Care Provider Encounter Details Date Type Department Care Team (Latest Contact Info) Description 12/26/2017 Orders Only [facility] Scanning, Provider Social History Tobacco Use Types Packs/Day Years Used Date Smoking Tobacco: Never Assessed Comments Unknown Sex and Gender Information Value Date Recorded Sex Assigned at Not on file 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:23 PM CARDING MACHINE FEEDER Gender Identity Not on file Sexual [...] on filedocumented in this encounter Care Teams Child And Adolescent Psychiatrist Relationship Specialty Start Date End Date Sudhir Galvez MD PCP - General Internal Medicine 12/07/17 documented as of this encounter
--- OUTSIDE RECORDS SUMMARY | 2025-05-01 07:49 | XMS_ITS | Encounter Summary ---
Author Organization [facility] Address [address] [place] [address] Phone Care Team Providers Care Tool Maintenance Technician Name Role Phone Sudhir Galvez MD Primary Care Provider [phone] Encounter Details Date Type Department Care Team (Latest Contact Info) Description 12/21/2017 Orders Only [facility] Scanning, Provider Social History Tobacco Use Types Packs/Day Years Used Date Smoking Tobacco: Never Assessed Comments Unknown Sex and Gender Information Value Date Recorded Sex Assigned at Not on file 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:23 PM HOT MILL TIN ROLLER Gender Identity Not on file Sexual Orientation [...] on filedocumented in this encounter Care Teams Tool Maintenance Technician Relationship Specialty Start Date End Date Sudhir Galvez MD PCP - General Internal Medicine 12/07/17 documented as of this encounter
--- OUTSIDE RECORDS SUMMARY | 2025-05-01 07:49 | XMS_ITS | Encounter Summary ---
Author Organization [facility] Address [address] [place] [address] Phone Care Team Providers Care Chair Upholsterer Name Role Phone Sudhir Galvez MD Primary Care Provider [phone] Encounter Details Date Type Department Care Team [...] on file 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:23 PM REPRINT SORTER Gender Identity Not on file Sexual Orientation [...] on filedocumented in this encounter Care Teams Chair Upholsterer Relationship Specialty Start Date End Date Sudhir Galvez MD PCP - General Internal Medicine 12/07/17 documented as of this encounter
--- OUTSIDE RECORDS SUMMARY | 2025-05-01 07:49 | XMS_ITS | Clinical Summary ---
Author Organization [facility] [address] Address [address] [place] [address] Care Team Providers Care Pickling Grader Name Role Phone Sudhir Galvez MD Primary Care Provider [phone] Allergies Active Allergy Reactions Criticality Noted Date Comments Adhesive Blisters High 12/20/2021 Adhesive Tape-Silicones Rash High 12/20/2021 Bleach (Sodium Hypochlorite) Rash Medium 022 Unotsaih-Pzvxdvrrcb-Msgrdilzu Blisters High 2021 Medications methylphenidate HCl (RITALIN) [...] Diagnosed Date Coronary artery disease invo lving [place] coronary artery of [place] heart without angina pectoris 03/19/2023 HTN (hypertension), benign 09/25/2022 Dyslipidemia 09/25/2022 Encounters Date Type Department Care Team Description 04/24/2025 10:56 AM CDT - 04/24/2025 11:59 PM CDT Hospital Encounter [facility] ([facility]) [address] [place] [address] Discharge Disposition: Discharge to home or self care 04/24/2025 10:55 AM CDT - 04/24/2025 11:59 PM CDT Hospital Encounter [facility] ([facility]) [address] [place] [address] Discharge Disposition: Discharge to home or self care 04/24/2025 10:54 AM CDT - 04/24/2025 11:59 PM CDT Hospital Encounter [facility] ([facility]) [address] [place] [address] Discharge Disposition: Discharge to home or self care 04/24/2025 10:43 AM CDT - 04/24/2025 11:59 PM CDT Hospital Encounter [facility] ([facility]) [address] [place] [address] Discharge Disposition: Discharge to home or self care 04/24/2025 10:35 AM CDT - 04/24/2025 11:59 PM CDT Hospital Encounter [facility] ([facility]) [address] [place] [address] Discharge Disposition: Discharge to home or self care from Last 3 Months Surgical History Surgery Date Site/Laterality Comments SECTION [...] on file 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:23 PM 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 WELDING EQUIPMENT REPAIRER Gender Identity Not on file Sexual Orientation Not on file Obstetrics History Last Filed Vital Signs Vital Sign Reading Time Taken Comments Blood Pressure 149/68 10/23/2024 2:53 PM SUPERVISOR WELDING EQUIPMENT REPAIRER Pulse 70 10/23/2024 2:53 PM SUPERVISOR WELDING EQUIPMENT REPAIRER Temperature 36.7 C (98.1 F) 10/23/2024 2:53 PM SUPERVISOR WELDING EQUIPMENT REPAIRER Respiratory Rate 26 12/22/2021 7:25 PM CDT Oxygen Saturation 94% 10/23/2024 2:53 PM SUPERVISOR WELDING EQUIPMENT REPAIRER Inhaled Oxygen Concentration - - Weight 118.4 kg (261 lb) 10/23/2024 2:53 PM SUPERVISOR WELDING EQUIPMENT REPAIRER Height 157.5 cm (5' 2) 10/23/2024 2:53 PM SUPERVISOR WELDING EQUIPMENT REPAIRER Body Mass Index 47.74 10/23/2024 2:53 PM SUPERVISOR WELDING EQUIPMENT REPAIRER Plan of Treatment Health Maintenance Due Date [...] Completed 023, 09/25/2018, 04/05/2016, Additional history exists Procedures Procedure Name Priority Date/Time Associated Diagnosis Comments CT BODY OUTSIDE REFERENCE Routine 04/24/2025 10:[address] OUTSIDE REFERENCE Routine 04/24/2025 10:[address] OUTSIDE REFERENCE Routine 04/24/2025 10:[address] BODY OUTSIDE REFERENCE Routine 04/24/2025 10:43 AM CDT US TRANSFER OF OUTSIDE FILMS Routine 04/24/2025 10:35 AM CDT from Last 3 Months Results * CT Body Outside Reference (04/24/2025 10:56 AM CDT) Impressions [facility] - 04/24/2025 10:56 AM CDT These images are for Reference purposes only and have not been reviewed by [facility]. There will be no report generated by a [facility] Radiologist. Narrative [facility] - 04/24/2025 10:56 AM CDT EXAMINATION: Images For Reference Purposes Only Pam Nicholas MD IMG CT PROCEDURES F inal Result Performing Organization Address [facility] Co de Phone Number [facility] * Neuro CT Outside Reference (04/24/2025 10:55 AM CDT) Impressions [facility] - 04/24/2025 10:55 AM CDT These images are for Reference purposes only and have not been reviewed by [facility]. There will be no report generated by a [facility] Radiologist. Narrative [facility] - 04/24/2025 10:55 AM CDT EXAMINATION: Images For Reference Purposes Only Pam Nicholas MD IMG CT PROCEDURES F inal Result Performing Organization Address [facility] de Phone Number [facility] * Neuro CT Outside Reference (04/24/2025 10:54 AM CDT) Impressions [facility] - 04/24/2025 10:54 AM CDT These images are for Reference purposes only and have not been reviewed by [facility]. There will be no report generated by a [facility] Radiologist. Narrative [facility] - 04/24/2025 10:54 AM CDT EXAMINATION: Images For Reference Purposes Only Pam Nicholas MD IMG CT PROCEDURES F inal Result Performing Organization Address [facility] Co de Phone Number [facility] * CT Body Outside Reference (04/24/2025 10:43 AM CDT) Impressions [facility] - 04/24/2025 10:43 AM CDT These images are for Reference purposes only and have not been reviewed by [facility]. There will be no report generated by a [facility] Radiologist. Narrative [facility] - 04/24/2025 10:43 AM CDT EXAMINATION: Images For Reference Purposes Only us Pam Nicholas MD IMG CT PROCEDURES F inal Result Performing Organization Address City/[facility]/ZIP Co de Phone Number [facility] * US Outside Reference (04/24/2025 10:35 AM CDT) Impressions [facility] - 04/24/2025 10:35 AM CDT These images are for Reference purposes only and have not been reviewed by [facility]. There will be no report generated by a [facility] Radiologist. Narrative [facility] - 04/24/2025 10:35 AM CDT EXAMINATION: Images For Reference Purposes Only us Pam Nicholas MD IMG US PROCEDURES F inal Result [facility] from Last 3 Months Insurance [employer] MEDICARE MEDICARE [facility] MEDICARE [employer] Advance Directives For more information, please contact: [phone] * Full Code (Latest Code Status on File) Date Activated Date Inactivated Comments 12/22/2021 6:13 PM 12/23/2021 12:12 AM Care Teams Pickling Grader Relationship Specialty Start Date End Date Sudhir Galvez MD PCP - General Internal Medicine 12/07/17
--- OUTSIDE RECORDS SUMMARY | 2025-05-01 07:49 | XMS_ITS | Referral Summary ---
Author Organization [facility] [address] Address [address] [place] [address] Care Team Providers Care Health Program Analyst Name Role Phone Sudhir Galvez MD Primary Care Provider Encounters Date Type Department Care Team Description 04/24/2025 10:56 AM CDT - 04/24/2025 11:59 PM CDT Hospital Encounter [facility] ([facility]) [address] [place] [address] Discharge Disposition: Discharge to home or self care 04/24/2025 10:55 AM CDT - 04/24/2025 11:59 PM CDT Hospital Encounter [facility] ([facility]) [address] [place] [address] Discharge Disposition: Discharge to home or self care 04/24/2025 10:54 AM CDT - 04/24/2025 11:59 PM CDT Hospital Encounter [facility] ([facility]) [address] [place] [address] Discharge Disposition: Discharge to home or self care 04/24/2025 10:43 AM CDT - 04/24/2025 11:59 PM CDT Hospital Encounter [facility] ([facility]) [address] [place] [address] Discharge Disposition: Discharge to home or self care 04/24/2025 10:35 AM CDT - 04/24/2025 11:59 PM CDT Hospital Encounter [facility] ([facility]) [address] [place] [address] Discharge Disposition: Discharge to home or self care from Last 3 Months Allergies Active Allergy Reactions Criticality Noted Date Comments Adhesive Blisters High 12/20/2021 Adhesive Tape-Silicones Rash High 12/20/2021 Bleach (Sodium Hypochlorite) Rash Medium 022 Ympcxmcq-Dtqlmypxcp-Nqvrohufi Blisters High 2021 Medications methylphenidate HCl (RITALIN) [...] Diagnosed Date Coronary artery disease invo lving [place] coronary artery of [place] heart without angina pectoris 03/19/2023 HTN (hypertension), [...] on file 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 Gender Identity Not on file Sexual Orientation Not on file Last Filed Vital Signs Vital Sign Reading Time Taken Comments Blood Pressure 149/68 10/23/2024 2:53 PM STRATEGY ANALYST Pulse 70 10/23/2024 2:53 PM STRATEGY ANALYST Temperature 36.7 C (98.1 F) 10/23/2024 2:53 PM STRATEGY ANALYST Respiratory Rate 26 12/22/2021 7:25 PM CDT Oxygen Saturation 94% 10/23/2024 2:53 PM STRATEGY ANALYST Inhaled Oxygen Concentration - - Weight 118.4 kg (261 lb) 10/23/2024 2:53 PM STRATEGY ANALYST Height 157.5 cm (5' 2) 10/23/2024 2:53 PM STRATEGY ANALYST Body Mass Index 47.74 10/23/2024 2:53 PM STRATEGY ANALYST Plan of Treatment Not on file Procedures Procedure Name Priority Date/Time Associated Diagnosis [...] Outside Reference (04/24/2025 10:56 AM CDT) Impressions [facility] - 04/24/2025 10:56 AM CDT These images are for Reference purposes only and have not been reviewed by [facility]. There will be no report generated by a [facility] Radiologist. Narrative [facility] - 04/24/2025 10:56 AM CDT EXAMINATION: Images For Reference Purposes Only Pammariely Nicholas MD [facility] [facility] CT PROCEDURES F inal Result [facility] * Neuro CT Outside Reference (04/24/2025 10:55 AM CDT) Impressions [facility] - 04/24/2025 10:55 AM CDT These images are for Reference purposes only and have not been reviewed by [facility]. There will be no report generated by a [facility] Radiologist. Narrative [facility] - 04/24/2025 10:55 AM CDT EXAMINATION: Images For Reference Purposes Only Pam Nicholas MD IMG CT PROCEDURES F inal Result Performing Organization Address [facility] de Phone Number [facility] * Neuro CT Outside Reference (04/24/2025 10:54 AM CDT) Impressions [facility] - 04/24/2025 10:54 AM CDT These images are for Reference purposes only and have not been reviewed by [facility]. There will be no report generated by a [facility] Radiologist. Narrative [facility] - 04/24/2025 10:54 AM CDT EXAMINATION: Images For Reference Purposes Only Pam Nicholas MD IMG CT PROCEDURES F inal Result Performing Organization Address [facility] de Phone Number [facility] * CT Body Outside Reference (04/24/2025 10:43 AM CDT) Impressions [facility] - 04/24/2025 10:43 AM CDT These images are for Reference purposes only and have not been reviewed by [facility]. There will be no report generated by a [facility] Radiologist. Narrative [facility] - 04/24/2025 10:43 AM CDT EXAMINATION: Images For Reference Purposes Only Pam Nicholas MD IMG CT PROCEDURES F inal Result Performing Organization Address [facility] de Phone Number [facility] * [place] Outside Reference (04/24/2025 10:35 AM CDT) Impressions [facility] - 04/24/2025 10:35 AM CDT These images are for Reference purposes only and have not been reviewed by [facility]. There will be no report generated by a [facility] Radiologist. Narrative [facility] - 04/24/2025 10:35 AM CDT EXAMINATION: Images For Reference Purposes Only us Pam Nicholas MD IMG US PROCEDURES F inal Result [facility] from Last 3 Months Insurance [employer] MEDICARE MEDICARE [facility] MEDICARE [facility] Advance Directives For more information, please contact: [phone] * Full Code (Latest Code Status on File) Date Activated Date Inactivated Comments 12/22/2021 6:13 PM 12/23/2021 12:12 AM Care Teams Health Program Analyst Relationship Specialty Start Date End Date Sudhir Galvez MD PCP - General Internal Medicine 12/07/17
--- OUTSIDE RECORDS SUMMARY | 2025-05-01 07:49 | XMS_ITS | Encounter Summary ---
Author Organization 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
--- OUTSIDE RECORDS SUMMARY | 2025-05-01 07:49 | XMS_ITS | Encounter Summary ---
Author Organization [facility] Address [address] [place] [address] Phone Care Team Providers Care Assembly Associate Name Role Phone Sudhir Galvez MD Primary Care Provider [phone] Encounter Details Date Type Department Care Team [...] on file 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:23 PM REPORT ANALYST Gender Identity Not on file Sexual [...] on filedocumented in this encounter Care Teams Assembly Associate Relationship Specialty Start Date End Date Sudhir Galvez MD PCP - General Internal Medicine 12/07/17 documented as of this encounter
--- OUTSIDE RECORDS SUMMARY | 2025-05-01 07:49 | XMS_ITS | Encounter Summary ---
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
--- OUTSIDE RECORDS SUMMARY | 2025-05-01 07:49 | XMS_ITS | Encounter Summary ---
Author Organization [facility] Address [address] [place] [address] Care Team Providers Care Roll Press Operator Name Role Phone Sudhir Galvez MD Primary Care Provider [phone] Encounter Details Date Type Department Care Team (Late st Contact Info) Description 01/08/2018 Orders Only [facility] Health Information Management [address] [place] [address] Scanning, Provider Social History Tobacco Use Types Packs/Day Years Used Date Smoking Tobacco: Never Assessed Comments Unknown Sex and Gender Information Value Date Recorded Sex Assigned at Not on file 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:23 PM INCREMENT MANAGER Gender Identity Not on file Sexual Orientation [...] on filedocumented in this encounter Care Teams Roll Press Operator Relationship Specialty Start Date End Date Sudhir Galvez MD PCP - General Internal Medicine 12/07/17 documented as of this encounter
--- OUTSIDE RECORDS SUMMARY | 2025-05-01 07:49 | XMS_ITS | Encounter Summary ---
Author Organization [facility] Address [address] [place] [address] Phone Care Team Providers Care Nursing Clinical Director Name Role Phone Sudhir Galvez MD Primary Care Provider [phone] Encounter Details Date Type Department Care Team [...] on file 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:23 PM REGIONAL PROGRAM MANAGER Gender Identity Not on file Sexual [...] on filedocumented in this encounter Care Teams Nursing Clinical Director Relationship Specialty Start Date End Date Sudhir Galvez MD PCP - General Internal Medicine 12/07/17 documented as of this encounter
--- OUTSIDE RECORDS SUMMARY | 2025-05-01 07:49 | XMS_ITS | Encounter Summary ---
Author Organization [facility] Address [address] [place] [address] Phone Care Team Providers Care Audio Visual Collections Coordinator Name Role Phone Sudhir Galvez MD Primary Care Provider [phone] Encounter Details Date Type Department Care Team (Latest Contact Info) Description 08/01/2022 Orders Only [facility] Scanning, Provider Social History Tobacco [...] on file 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:23 PM QA MANAGER Gender Identity Not on file Sexual [...] on filedocumented in this encounter Care Teams Audio Visual Collections Coordinator Relationship Specialty Start Date End Date Sudhir Galvez MD PCP - General Internal Medicine 12/07/17 documented as of this encounter
--- OUTSIDE RECORDS SUMMARY | 2025-05-01 07:49 | XMS_ITS | Data Portability ---
Author Organization [facility], [address] [place] [address] [place] ([place]) Address [address] [place] [address] Care Team Providers Care Sole Seamer Name Role Phone CONSTANCE ROBERTSON Primary Care Provider CORTES MACIAS Primary Care Provider [phone] Assessment Encounter Date Assessment Date Assessment LastModified [...] plan. Not available 04/17/2024 14:32:46 10/22/2024 10/22/2024 [place] symptoms of Alzheimer's disease have worsened. Her [...] Orders donepezil 10 mg tablet 2024 025 [facility] [place], [address], 10/22/2024 15:11:34 donepezil 10 mg tablet 2023 024 [facility] [place], [address], 04/17/2024 14:19:47 Patient TargetsNo targets recorded. Patient InstructionsNo instructions recorded. Reason for Referral None Reported. Problems Name Problem SNOMED Code Status Onset Date Resolution Date Notes Provider Name and Address Organization Details Recorded Time Alzheimer's disease 09282920 Active 2023 Heather Ron, AUTOMOTIVE TEACHER, HAND DRAWER IN [address] [place] [address], [phone], [facility] 5 09:02:06 Chronic back pain 994400889 Active 2023 Rafa Harris [facility] 4 16:28:32 Dementia of the Alzheimer type with behavioral disturbance 5875845695447 Active 2024 Heather Ron, AUTOMOTIVE TEACHER, HAND DRAWER IN [address] [place] [address], [phone], [facility] 5 09:01:20 Problem Notes None recorded. Medical Equipment None Reported. Allergies Allergen ID Allergen Name Allergen Category Reaction Reaction Severity Criticality Documentation Date Start Date Code Code System Note Provider Name and Address Organization Details Recorded Time 5807290 aspirin medicatio n Not available Not available Not available 11/08/20232022 1191 RxNorm Not Available [facility] 4 03:55:22 9492606 bacitraci n / neomycin / polymyxin B medicatio n Not available Not available Not available 11/08/20232022 26802 9 RxNorm Not Available [facility] 4 03:55:22 9758615 chlorine Not available Not available Not available Not available 11/08/20232022 38515 22 RxNorm Comme nt: Chlor ine A nnota tions : PATTERSON , MAREC A 2022 1:22P M Chlor ine bleac h; ; Not Available [facility] 4 03:55:22 Medications Name Sig Start Date [...] Updated DateTime 5 154.94 cm 37 kg/m2 55989.1 g 70 /min 95 % 95 % 120/78 mm[Hg] Ellen Andrew [facility] 5 14:59:01 Date Recorded Body height Body mass index (BMI) Body weight Heart rate Oxygen saturation Oxygen saturation in Arterial blood by Pulse oximetry Systolic And Diastolic Provider Name and Address Organization Details Last Updated DateTime 4 154.94 cm 34.8 kg/m2 76887.7 1 g 66 /min 95 % 95 % 140/70 mm[Hg] Ayse Arredondo [facility] 4 14:03:46 Social History None recorded. Functional Status None recorded. Mental Status None recorded. Family History Nothing Reported. Medical History No medical history recorded. Gynecological HistoryNo gynecological history recorded. Obstetrics History GPAL:G 0 P 0 0 0 0 Past Encounters Encounter ID Performer Location Encounter Start Date Encounter Closed Date Diagnosis/Indication Diagnosis SNOMED-CT Code Diagnosis ICD10 Code Diagnosis Note [id number] Heather Ron, AUTOMOTIVE TEACHER, HAND DRAWER IN [address] [place] ([place]) [address] [place] [address] 04/17/2024 13:34:32 04/17/2024 14:26:09 Alzheimer's disease 55650206 G30.9 [id number] Heather Ron, AUTOMOTIVE TEACHER, HAND DRAWER IN [address] [facility] ([place]) [address] [place] [address] 10/22/2024 14:31:01 10/22/2024 15:24:56 Alzheimer's disease 06128039 G30.9 Health Concerns Section Related Observation LastModified by Organization Detai ls LastModified Time None Recorded Concern Status LastModified by Organization Details LastModified Time None Recorded Advance Directives Directive None Recorded Payers Insurance Date Sequence Insurance Name Policy Number Policy Mccormick Covered Member ID Mccormick Member ID Guarantor Name 04/17/2025 1 [place] Meredith Boss [id number] Meredith Boss 12/11/2024 2 [employer] Alexa Boss [id number] Meredith Boss Notes Date Note Type Note [...] feel steady walking on that. Heather Ron, AUTOMOTIVE TEACHER, HAND DRAWER IN [address] [place] [address], [phone], [facility] 04/17/2024 14:33:02 10/22/2024 text/jay Harper is [...] a 22 out of 30. Heather Ron, AUTOMOTIVE TEACHER, HAND DRAWER IN [address] [place] [address], [phone], [place] [facility] 10/22/2024 15:27:46 OBGyn Episode No OBEpisode recorded.
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
--- OUTSIDE RECORDS SUMMARY | 2025-05-01 07:49 | XMS_ITS | Encounter Summary ---
Author Organization 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
--- OUTSIDE RECORDS SUMMARY | 2025-05-01 07:49 | XMS_ITS | Patient Health Record ---
Author Organization [facility] Address [address] [place], [place] [address] Care Team Providers Care Bend Sorter Name Role Phone QUINCY BOOTH Unavailable [phone] Sudhir Galvez Unavailable Unavailable Reason For Referral No Information Medications Medication SIG (Take, Route, Frequency, Duration) Notes Start Date End Date Status aspirin 81 MG Delayed Release Oral Tablet [Aspir-Low] ORAL aspirin 81 MG Delayed Release Oral Tablet [Aspir-Low]Original Medicationaspirin 81 MG Delayed Release Oral Tablet [Aspir-Low] *Reorder from [employer] for eRx and Interaction Alerts* 4 Active amlodipine 10 MG Oral Tablet ORAL amlodipine 10 MG Oral TabletOriginal Medicationamlodipine 10 MG Oral Tablet *Reorder from [employer] for eRx and Interaction Alerts* 4 Active dicloxacillin 500 MG Oral Capsule ORAL dicloxacillin 500 MG Oral CapsuleOriginal Medicationdicloxacillin 500 MG Oral Capsule *Reorder from [employer] for eRx and Interaction Alerts* 4 Active Topiramate 25 MG Oral Tablet ORAL topiramate 25 MG Oral TabletOriginal Medicationtopiramate 25 MG Oral Tablet *Reorder from [employer] for eRx and Interaction Alerts* 5 Active Spironolactone 100 MG Oral Tablet ORAL spironolactone 100 MG Oral TabletOriginal Medicationspironolactone 100 MG Oral Tablet *Reorder from [employer] for eRx and Interaction Alerts* 4 Active acetaminophen 500 MG / hydrocodone bitartrate 5 MG Oral Capsule ORAL acetaminophen 500 MG / hydrocodone bitartrate 5 MG Oral CapsuleOriginal Medicationacetaminophen 500 MG / hydrocodone bitartrate 5 MG Oral Capsule *Reorder from [employer] for eRx and Interaction Alerts* 4 Active acetaminophen 24 MG/ML / codeine phosphate 2.4 MG/ML Oral Solution ORAL acetaminophen 24 MG/ML / codeine phosphate 2.4 MG/ML Oral SolutionOriginal Medicationacetaminophen 24 MG/ML / codeine phosphate 2.4 MG/ML Oral Solution *Reorder from [email or web address] for eRx and Interaction Alerts* 5 Active ropinirole 1 MG Oral Tablet ORAL ropinirole 1 MG Oral TabletOriginal Medicationropinirole 1 MG Oral Tablet *Reorder from [employer] for eRx and Interaction Alerts* 4 Active nortriptyline 10 MG Oral Capsule ORAL nortriptyline 10 MG Oral CapsuleOriginal Medicationnortriptyline 10 MG Oral Capsule *Reorder from [email or web address] for eRx and Interaction Alerts* 4 Active Plan Of Treatment No Information Insurance Providers Payer Name Payer Address Payer Phone Subscriber Number Group Number Insured Name Patient Relationship to Insured Coverage Start Date Coverage End Date Medicare Part B [place] [address] [place] [address] [id number] JAMMIE JACKSON Self - patient is the insured [employer] [address] [address] [place] [address] [id number] JAMMIE JACKSON Self - patient is the insured [facility] [address] [place], [place] [id number] JAMMIE JACKSON Self - patient is the insured
== END 2025-05-01 07:46 | disposition home or self-care (01) ==
LOC: CHSIMG 07:47
PROVIDERS: PCP Internal Medicine; Visit Provider Nurse Practitioner Family
DX: R92.8 Other abnormal and inconclusive findings on diagnostic imaging of breast (principal)
CPT/HCPCS: 77061; 77065; G0279

== ENCOUNTER 2025-05-20 12:01 | Outpatient (CLI) | payer MEDICARE, SELFPAY ==
[2025-05-20 12:25] LABS: Hematocrit 43.1 % (35.0-42.0); Hemoglobin 14.3 g/dL (11.7-13.8); Mean Corpuscular HGB Conc 33.2 g/dL (32-36); Mean Corpuscular Hemoglobin 30.5 pg (27.0-31.0); Mean Corpuscular Volume 91.9 fL (78.0-102.0); Platelet Count Result 286 K/mm3 (150-420); Red Blood Count 4.69 M/mm3 (4.20-5.40); White Blood Count 8.9 K/mm3 (4.8-10.8)
--- OUTSIDE RECORDS SUMMARY | 2025-05-20 12:34 | XMS_ITS | Encounter Summary ---
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
--- OUTSIDE RECORDS SUMMARY | 2025-05-20 12:34 | XMS_ITS | Encounter Summary ---
Author Organization [facility] Address [address] [place] [address] Phone Care Team Providers Care Sales Clerk Supervisor Name Role Phone Sudhir Galvez MD Primary Care Provider [phone] Encounter Details Date Type Department Care Team [...] on file 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:23 PM BOND CLERK Gender Identity Not on file Sexual Orientation [...] on filedocumented in this encounter Care Teams Sales Clerk Supervisor Relationship Specialty Start Date End Date Sudhir Galvez MD PCP - General Internal Medicine 12/07/17 documented as of this encounter
--- OUTSIDE RECORDS SUMMARY | 2025-05-20 12:34 | XMS_ITS | Encounter Summary ---
Author Organization [facility] Address [address] [place] [address] Phone Care Team Providers Care Bobbin Stripper Name Role Phone Sudhir Galvez MD Primary Care Provider [phone] Encounter Details Date Type Department Care Team (Latest Contact Info) Description 12/26/2017 Orders Only [facility] Scanning, Provider Social History Tobacco Use Types Packs/Day Years Used Date Smoking Tobacco: Never Assessed Comments Unknown Sex and Gender Information Value Date Recorded Sex Assigned at Not on file 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:23 PM NIGHT STOCKER Gender Identity Not on file Sexual Orientation [...] on filedocumented in this encounter Care Teams Bobbin Stripper Relationship Specialty Start Date End Date Sudhir Galvez MD PCP - General Internal Medicine 12/07/17 documented as of this encounter
--- OUTSIDE RECORDS SUMMARY | 2025-05-20 12:34 | XMS_ITS | Encounter Summary ---
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
--- OUTSIDE RECORDS SUMMARY | 2025-05-20 12:34 | XMS_ITS | Encounter Summary ---
Author Organization [facility] Address [address] [place] [address] Phone Care Team Providers Care Director Athletic Name Role Phone Sudhir Galvez MD Primary Care Provider [phone] Encounter Details Date Type Department Care Team (Latest Contact Info) Description 12/21/2017 Orders Only [facility] Scanning, Provider Social History Tobacco Use Types Packs/Day Years Used Date Smoking Tobacco: Never Assessed Comments Unknown Sex and Gender Information Value Date Recorded Sex Assigned at Not on file 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:23 PM PHOTOGRAPH ENLARGER Gender Identity Not on file Sexual Orientation [...] filedocumented in this encounter Care Teams Director Athletic Relationship Specialty Start Date End Date Sudhir Galvez MD PCP - General Internal Medicine 12/07/17 documented as of this encounter
--- OUTSIDE RECORDS SUMMARY | 2025-05-20 12:34 | XMS_ITS | Encounter Summary ---
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
--- OUTSIDE RECORDS SUMMARY | 2025-05-20 12:34 | XMS_ITS | Encounter Summary ---
Author Organization [facility] Address [address] [place] [address] Care Team Providers Care Derrick Worker Well Service Name Role Phone Sudhir Galvez MD Primary Care Provider Encounter Details Date Type Department Care Team (Late st Contact Info) Description 01/08/2018 Orders Only [facility] Health Information Management [address] [place] [address] Scanning, Provider Social History Tobacco Use Types Packs/Day Years Used Date Smoking Tobacco: Never Assessed Comments Unknown Sex and Gender Information Value Date Recorded Sex Assigned at Not on file 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:23 PM SPECIAL 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
--- OUTSIDE RECORDS SUMMARY | 2025-05-20 12:34 | XMS_ITS | Encounter Summary ---
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
--- OUTSIDE RECORDS SUMMARY | 2025-05-20 12:34 | XMS_ITS | Encounter Summary ---
Author Organization [facility] Address [address] [place] [address] Phone Care Team Providers Care Automotive Glass Installer Name Role Phone Sudhir Galvez MD Primary Care Provider [phone] Encounter Details Date Type Department Care Team (Latest Contact Info) Description 08/18/2021 Orders Only [facility] Scanning, Provider Social History Tobacco Use Types Packs/Day Years Used Date Smoking Tobacco: Never Assessed Comments Unknown Sex and Gender Information Value Date Recorded Sex Assigned at Not on file 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
--- OUTSIDE RECORDS SUMMARY | 2025-05-20 12:34 | XMS_ITS | Clinical Summary ---
Author Organization [facility] [address] Address [address] [place] [address] Care Team Providers Care Target Developer Name Role Phone Sudhir Galvez MD Primary Care Provider [phone] Allergies Active Allergy Reactions Criticality Noted Date Comments Adhesive Blisters High 12/20/2021 Adhesive Tape-Silicones Rash High 12/20/2021 Bleach (Sodium Hypochlorite) Rash Medium 022 Latex Rash Medium 05/06/2025 Qxlfhisu-Uhedxzwazh-Qcvwnmhyy Blisters High 2021 Medications acetaminophen-c odeine (TYLENOL with CODEINE #3) 300-30 [...] 500 mg 24 hr tablet 1 Active magnesium oxide 400 mg [...] (81 mg total) by mouth daily Active donepeziL (ARICEPT) 5 mg tablet 2 tablets (10 mg total) 3 Active ferrous sulfate 325 mg (65 mg of elemental iron) tablet Take 1 tablet (325 mg total) by mouth 2 (two) times a day 3 Active gabapentin (NEURONTIN) 300 mg capsule Take 1 capsule (300 mg total) by mouth daily 3 Active aluminum-magnes ium hydroxide-simet hicone (MAALOX) suspension 200-200-20 mg/5 mL Take 20 mL by mouth every 6 (six) hours as needed 3 Active omeprazole (PriLOSEC) 40 mg capsule Take 1 capsule (40 mg total) by mouth daily 3 Active ranolazine ER (RANEXA) 500 mg 12 hr tablet TAKE ONE TABLET BY MOUTH TWICE A DAY 180 tablet 3 5 Active ACETAMINOPHEN, BULK, MISC Active ondansetron HCl (ZOFRAN ORAL) Take by mouth Ac tive methylphenidate HCl (RITALIN) 10 mg tablet 1 05/06/20 25 Discontinu ed(Patient Reported) promethazine (PHENERGAN) 25 mg tablet 1 05/06/20 25 Discontinu ed(Patient Reported) doxycycline (VIBRAMYCIN) 100 mg capsule Take 1 tablet/capsul e (100 mg total) by mouth daily 05/06/20 25 Discontinu ed(Patient Reported) lidocaine (ASPERCREME) 4 % adhesive patch,medicated Apply 1 patch topically daily 3 05/06/20 Discontinu ed(Patient Reported) Active Problems Problem Noted Date Diagnosed Date Coronary artery disease invo lving [place] coronary artery of [place] heart without angina pectoris 03/19/2023 HTN (hypertension), benign 09/25/2022 Dyslipidemia 09/25/2022 Encounters Date Type Department Care Team Description 05/06/2025 1:00 PM CDT Office Visit [facility] Surgery [address] [facility] [address] [place] [address] Pam Nicholas MD Cholelithiasis without cholecystitis 04/24/2025 10:56 AM CDT - 04/24/2025 11:59 PM CDT Hospital Encounter [facility] [address] [place] [address] Discharge Disposition: Discharge to home or self care 04/24/2025 10:55 AM CDT - 04/24/2025 11:59 PM CDT Hospital Encounter [facility]) [address] [place] [address] Discharge Disposition: Discharge to home or self care 04/24/2025 10:54 AM CDT - 04/24/2025 11:59 PM CDT Hospital Encounter [facility]) [address] [place] [address] Discharge Disposition: Discharge to home or self care 04/24/2025 10:43 AM CDT - 04/24/2025 11:59 PM CDT Hospital Encounter [facility] [address] [place] [address] Discharge Disposition: Discharge to home or self care 04/24/2025 10:35 AM CDT - 04/24/2025 11:59 PM CDT Hospital Encounter [facility] [address] [place] [address] Discharge Disposition: Discharge to home or self care from Last 3 Months Surgical History Surgery Date Site/Laterality Comments SECTION BREAST LUMPECTOMY Right REPLACEMENT TOTAL KNEE Bilateral CATARACT EXTRACTION Bilateral Medical History Medical History Date Comments Hypertension Diabetes mellitus (HCC) KATTY on CPAP Arthritis Dementia (HCC) Hypercholesteremia Family History Medical History Relation Name Comments Alzheimer's disease Sister Uterine cancer Sister Relation Name Status Comments Sister Social History Tobacco Use Types Packs/Day Years Used Date Smoking Tobacco: Former Cigarettes 0.5 35 1 974 - 2009 Smokeless Tobacco: Never Tobacco Cessation:Counseling Given: Not Answered AUDIT-C Answer Date Recorded Q1: How often do you have a drink containing alcohol? Never 05/06/2025 Q2: How many drinks containi ng alcohol do you have on a typical day when you are drinking? Patient does not drink Q3: How often do you have si x or more drinks on one occasion? 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 Gender Identity Not on file Sexual Orientation Not on file Obstetrics History Last Filed Vital Signs Vital Sign Reading Time Taken Comments Blood Pressure 147/67 05/06/2025 12:41 PM CDT Pulse 92 05/06/2025 12:41 PM CDT Temperature 36.8 C (98.3 F) 05/06/2025 12:41 PM CDT Respiratory Rate 18 05/06/2025 12:41 PM CDT Oxygen Saturation 94% 05/06/2025 12:41 PM CDT Inhaled Oxygen Concentration - - Weight 91.4 kg (201 lb 8 oz) 05/06/2025 12:41 PM CDT Height 155 cm (5' 1.02) 05/06/2025 12:41 PM CDT Body Mass Index 38.04 05/06/2025 12:41 PM CDT Plan of Treatment Health Maintenance Due Date [...] Outside Reference (04/24/2025 10:56 AM CDT) Impressions [facility] - 04/24/2025 10:56 AM CDT These images are for Reference purposes only and have not been reviewed by [facility] Radiology. There will be no report generated by a [facility] Radiologist. Narrative [facility] - 04/24/2025 10:56 AM CDT EXAMINATION: Images For Reference Purposes Only us Pam Nicholas MD IMG CT PROCEDURES F inal Result Performing Organization Address [facility] Co de Phone Number [email or web address] * Neuro CT Outside Reference (04/24/2025 10:55 AM CDT) Impressions [facility] - 04/24/2025 10:55 AM CDT These images are for Reference purposes only and have not been reviewed by [facility] Radiology. There will be no report generated by a [facility] Radiologist. Narrative [facility]_P[facility] - 04/24/2025 10:55 AM CDT EXAMINATION: Images For Reference Purposes Only us Pam Nicholas MD IMG CT PROCEDURES F inal Result [facility] * Neuro CT Outside Reference (04/24/2025 10:54 AM CDT) Impressions [facility] - 04/24/2025 10:54 AM CDT These images are for Reference purposes only and have not been reviewed by [facility] Radiology. There will be no report generated by a [facility] Radiologist. Narrative [facility] - 04/24/2025 10:54 AM CDT EXAMINATION: Images For Reference Purposes Only us Pam Nicholas MD IMG CT PROCEDURES F inal Result Performing Organization Address [facility] Co de Phone Number [email or web address] * CT Body Outside Reference (04/24/2025 10:43 AM CDT) Impressions [facility] - 04/24/2025 10:43 AM CDT These images are for Reference purposes only and have not been reviewed by [facility] Radiology. There will be no report generated by a [facility] Radiologist. Narrative [facility] - 04/24/2025 10:43 AM CDT EXAMINATION: Images For Reference Purposes Only us Pam Nicholas MD IMG CT PROCEDURES F inal Result Performing Organization Address [facility] Co de Phone Number [email or web address] * US Outside Reference (04/24/2025 10:35 AM CDT) Impressions [facility] - 04/24/2025 10:35 AM CDT These images are for Reference purposes only and have not been reviewed by [facility] Radiology. There will be no report generated by a [facility] Radiologist. Narrative [facility] - 04/24/2025 10:35 AM CDT EXAMINATION: Images For Reference Purposes Only Pam Nicholas MD IMG US PROCEDURES F inal Result Performing Organization Address [facility] Co de Phone Number [facility] from Last 3 Months Insurance [employer] MEDICARE MEDICARE [facility] MEDICARE [facility] Advance Directives For more information, please contact: [phone] * Full Code (Latest Code Status on File) Date Activated Date Inactivated Comments 12/22/2021 6:13 PM 12/23/2021 12:12 AM Care Teams Target Developer Relationship Specialty Start Date End Date Sudhir Galvez MD PCP - General Internal Medicine 12/07/17
--- OUTSIDE RECORDS SUMMARY | 2025-05-20 12:34 | XMS_ITS | Clinical Summary ---
Author Organization [facility] Address [address] [place] [address] Care Team Providers Care Cardiology Teacher Name Role Phone Sudhir Galvez MD Primary Care Provider [phone] Allergies Active Allergy Reactions Criticality Noted Date [...] 84.8 kg (187 lb) 11/22/2023 10:23 AM DEVOPS DEVELOPER Height 170.2 cm (5' 7) 11/22/2023 10:23 AM DEVOPS DEVELOPER Body Mass Index 29.29 11/22/2023 10:23 AM DEVOPS DEVELOPER Plan of Treatment Health Maintenance Due Date [...] age to complete this topic Insurance [place] [address] [place] [address] [place] [address] [employer] Care Teams Cardiology Teacher Relationship Specialty Start Date End Date Sudhir Galvez MD [address] [place] [address] PCP - General INTERNAL MEDICINE 07/11/23
--- OUTSIDE RECORDS SUMMARY | 2025-05-20 12:34 | XMS_ITS | Patient Health Record ---
Author Organization [facility] Address [address] [place], [place] [address] Care Team Providers Care Communication Electronic Technician Name Role Phone QUINCY BOOTH Unavailable [phone] Sudhir Galvez Unavailable Unavailable Reason For Referral No Information Medications Medication SIG (Take, Route, Frequency, Duration) Notes Start Date End Date Status aspirin 81 MG Delayed Release Oral Tablet [Aspir-Low] ORAL aspirin 81 MG Delayed Release Oral Tablet [Aspir-Low]Original Medicationaspirin 81 MG Delayed Release Oral Tablet [Aspir-Low] *Reorder from [employer] for eRx and Interaction Alerts* 4 Active amlodipine 10 MG Oral Tablet ORAL amlodipine 10 MG Oral TabletOriginal Medicationamlodipine 10 MG Oral Tablet *Reorder from [employer] for eRx and Interaction Alerts* 4 Active dicloxacillin 500 MG Oral Capsule ORAL dicloxacillin 500 MG Oral CapsuleOriginal Medicationdicloxacillin 500 MG Oral Capsule *Reorder from [employer] for eRx and Interaction Alerts* 4 Active Topiramate 25 MG Oral Tablet ORAL topiramate 25 MG Oral TabletOriginal Medicationtopiramate 25 MG Oral Tablet *Reorder from [employer] for eRx and Interaction Alerts* 5 Active Spironolactone 100 MG Oral Tablet ORAL spironolactone 100 MG Oral TabletOriginal Medicationspironolactone 100 MG Oral Tablet *Reorder from [employer] for eRx and Interaction Alerts* 4 Active acetaminophen 500 MG / hydrocodone bitartrate 5 MG Oral Capsule ORAL acetaminophen 500 MG / hydrocodone bitartrate 5 MG Oral CapsuleOriginal Medicationacetaminophen 500 MG / hydrocodone bitartrate 5 MG Oral Capsule *Reorder from [employer] for eRx and Interaction Alerts* 4 Active acetaminophen 24 MG/ML / codeine phosphate 2.4 MG/ML Oral Solution ORAL acetaminophen 24 MG/ML / codeine phosphate 2.4 MG/ML Oral SolutionOriginal Medicationacetaminophen 24 MG/ML / codeine phosphate 2.4 MG/ML Oral Solution *Reorder from [employer] for eRx and Interaction Alerts* 5 Active ropinirole 1 MG Oral Tablet ORAL ropinirole 1 MG Oral TabletOriginal Medicationropinirole 1 MG Oral Tablet *Reorder from [employer] for eRx and Interaction Alerts* 4 Active nortriptyline 10 MG Oral Capsule ORAL nortriptyline 10 MG Oral CapsuleOriginal Medicationnortriptyline 10 MG Oral Capsule *Reorder from [employer] for eRx and Interaction Alerts* 4 Active Plan Of Treatment No Information Insurance Providers Payer Name Payer Address Payer Phone Subscriber Number Group Number Insured Name Patient Relationship to Insured Coverage Start Date Coverage End Date Medicare Part B [place] [address] [place] [address] [id number] JAMMIE JACKSON Self - patient is the insured [employer] [address] [address] [place] [address] [id number] JAMMIE JACKSON Self - patient is the insured [facility] [address] [place], [place] [id number] JAMMIE JACKSON Self - patient is the insured
--- OUTSIDE RECORDS SUMMARY | 2025-05-20 12:34 | XMS_ITS | Encounter Summary ---
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
[2025-05-20 12:53] LABS: Alanine Aminotransferase 23 U/L (6-35); Albumin Level 4.9 g/dL (3.5-5.1); Alkaline Phosphatase 79 U/L (38-126); Anion Gap 10 mmol/L (4-12); Aspartate Amino Transferase 27 U/L (14-36); Bilirubin,Total 0.8 mg/dL (0.2-1.3); Blood Urea Nitrogen 17 mg/dL (7-17); CRP < 0.5 mg/dL (<1.0); Calcium 10.7 mg/dL (8.4-10.2); Carbon Dioxide 20 mmol/L (22-30); Chloride 111 mmol/L (98-107); Estimated Glomerular Filt Rate 49; Glucose 169 mg/dL (65-110); Osmolality Calculated 297 mOsm/kg (285-295); Potassium 4.1 mmol/L (3.4-5.0); Sodium 141 mmol/L (137-145); Total Protein 7.3 g/dL (6.3-8.2)
[2025-05-20 13:55] LABS: Add Urine Microscopic? YES; Appearance Urine Clear (Clear); Glucose Urine UA Negative (Negative); Leukocyte Esterase Ur 2+ (Negative); Nitrate Urine Negative (Negative); Specific Grav Ur 1.025 (1.010-1.020)
[2025-05-20 14:59] LABS: Amylase 79 U/L (30-110); Lipase 249 U/L (23-300)
[2025-05-20 15:22] LABS: Calcium 10.7 mg/dL (8.4-10.2)
== END 2025-05-20 12:02 | disposition home or self-care (01) ==
LOC: CHSLAB 12:03
PROVIDERS: PCP Internal Medicine; Visit Provider Internal Medicine
DX: R11.0 Nausea (principal); R19.7 Diarrhea, unspecified; E83.52 Hypercalcemia; R10.9 Unspecified abdominal pain
CPT/HCPCS: 36415; 80053; 81001; 82150; 82310; 83690; 85027; 86140; 87040; 87086

== ENCOUNTER 2025-05-23 09:35 | Outpatient (CLI) | payer MEDICARE, SELFPAY ==
--- OUTSIDE RECORDS SUMMARY | 2025-05-23 09:44 | XMS_ITS | Clinical Summary ---
Author Organization [facility] [address] Address [address] [place] [address] Care Team Providers Care High School Music Instructor Name Role Phone Sudhir Galvez MD Primary Care Provider [phone] Allergies Active Allergy Reactions Criticality Noted Date Comments Adhesive Blisters High 12/20/2021 Adhesive Tape-Silicones Rash High 12/20/2021 Bleach (Sodium Hypochlorite) Rash Medium 022 Latex Rash Medium 05/06/2025 Biylgnwg-Ayhwlphknb-Ugnzkaunc Blisters High 2021 Medications acetaminophen-c odeine (TYLENOL [...] Diagnosed Date Coronary artery disease invo lving [place] coronary artery of [place] heart without angina pectoris 03/19/2023 HTN (hypertension), benign 09/25/2022 Dyslipidemia 09/25/2022 Encounters Date Type Department Care Team Description 05/06/2025 1:00 PM CDT Office Visit [facility] Surgery [address] [facility] [address] [place] [address] Pam Nicholas MD Cholelithiasis without cholecystitis 04/24/2025 10:56 AM CDT - 04/24/2025 11:59 PM CDT Hospital Encounter [facility] [address] [place] [address] Discharge Disposition: Discharge to home or self care 04/24/2025 10:55 AM CDT - 04/24/2025 11:59 PM CDT Hospital Encounter [facility] [address] [place] [address] Discharge Disposition: Discharge to home or self care 04/24/2025 10:54 AM CDT - 04/24/2025 11:59 PM CDT Hospital Encounter [facility] [address] [place] [address] Discharge Disposition: Discharge to home or self care 04/24/2025 10:43 AM CDT - 04/24/2025 11:59 PM CDT Hospital Encounter [facility] [address] [place] [address] Discharge Disposition: Discharge to home or self care 04/24/2025 10:35 AM CDT - 04/24/2025 11:59 PM CDT Hospital Encounter [facility] [address] [place] [address] Discharge Disposition: Discharge to home or self [...] on file 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 There will be no report generated by a [facility] Radiologist. Narrative [facility] - 04/24/2025 10:56 AM CDT EXAMINATION: Images For Reference Purposes Only us Pam Nicholas MD IMG CT PROCEDURES F inal Result Performing Organization Address [facility] Co de Phone Number [email or web address] * Neuro CT Outside Reference (04/24/2025 10:55 AM CDT) Impressions [facility] - 04/24/2025 10:55 AM CDT These images are for Reference purposes only and have not been reviewed by [facility] Radiology. There will be no report generated by a [facility] Radiologist. Narrative [facility] - 04/24/2025 10:55 AM CDT EXAMINATION: Images For Reference Purposes Only us Pam Nicholas MD IMG CT PROCEDURES F inal Result [facility] * Neuro CT Outside Reference (04/24/2025 10:54 AM CDT) Impressions [facility] - 04/24/2025 10:54 AM CDT These images are for Reference purposes only and have not been reviewed by [facility] Radiology. There will be no report generated by a [facility] Radiologist. Narrative [facility] - 04/24/2025 10:54 AM CDT EXAMINATION: Images For Reference Purposes Only us Pam Nicholas MD IMG CT PROCEDURES F inal Result Performing Organization Address [facility] Co de Phone Number [facility] * CT Body Outside Reference (04/24/2025 10:43 AM CDT) Impressions [facility] - 04/24/2025 10:43 AM CDT These images are for Reference purposes only and have not been reviewed by [facility] Radiology. There will be no report generated by a [facility] Radiologist. Narrative [facility] - 04/24/2025 10:43 AM CDT EXAMINATION: Images For Reference Purposes Only us Pam Nicholas MD IMG CT PROCEDURES F inal Result Performing Organization Address [facility] Co de Phone Number [email or web address] * [place] Outside Reference (04/24/2025 10:35 AM CDT) Impressions [facility] - 04/24/2025 10:35 AM CDT These images are for Reference purposes only and have not been reviewed by [facility] Radiology. There will be no report generated by a [facility] Radiologist. Narrative [facility] - 04/24/2025 10:35 AM CDT EXAMINATION: Images For Reference Purposes Only Pam Nicholas MD IMG US PROCEDURES F inal Result Performing Organization Address [facility] Co de Phone Number [facility] from Last 3 Months Insurance [employer] MEDICARE MEDICARE [facility] MEDICARE [facility] Advance Directives For more information, please contact: [phone] * Full Code (Latest Code Status on File) Date Activated Date Inactivated Comments 12/22/2021 6:13 PM 12/23/2021 12:12 AM Care Teams High School Music Instructor Relationship Specialty Start Date End Date Sudhir Galvez MD PCP - General Internal Medicine 12/07/17
--- OUTSIDE RECORDS SUMMARY | 2025-05-23 09:44 | XMS_ITS | Encounter Summary ---
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
--- OUTSIDE RECORDS SUMMARY | 2025-05-23 09:44 | XMS_ITS | Encounter Summary ---
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
--- OUTSIDE RECORDS SUMMARY | 2025-05-23 09:44 | XMS_ITS | Encounter Summary ---
Author Organization [facility] Address [address] [place] [address] Phone Care Team Providers Care Sterilization Technician Name Role Phone Sudhir Galvez MD Primary Care Provider [phone] Encounter Details Date Type Department Care Team (Latest Contact Info) Description 12/21/2017 Orders Only [facility] Scanning, Provider Social History Tobacco Use Types Packs/Day Years Used Date Smoking Tobacco: Never Assessed Comments Unknown Sex and Gender Information Value Date Recorded Sex Assigned at Not on file 

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
--- OUTSIDE RECORDS SUMMARY | 2025-05-23 09:44 | XMS_ITS | Encounter Summary ---
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
--- OUTSIDE RECORDS SUMMARY | 2025-05-23 09:44 | XMS_ITS | Encounter Summary ---
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
--- OUTSIDE RECORDS SUMMARY | 2025-05-23 09:44 | XMS_ITS | Encounter Summary ---
Author Organization [facility] Address [address] [place] [address] Phone Care Team Providers Care It Project Coordinator Name Role Phone Sudhir Galvez MD Primary Care Provider [phone] Encounter Details Date Type Department Care Team (Latest Contact Info) Description 12/26/2017 Orders Only [facility] Scanning, Provider Social History Tobacco Use Types Packs/Day Years Used Date Smoking Tobacco: Never Assessed Comments Unknown Sex and Gender Information Value Date Recorded Sex Assigned at Not on file 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
--- OUTSIDE RECORDS SUMMARY | 2025-05-23 09:44 | XMS_ITS | Encounter Summary ---
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
--- OUTSIDE RECORDS SUMMARY | 2025-05-23 09:44 | XMS_ITS | Encounter Summary ---
Author Organization [facility] Address [address] [place] [address] Phone Care Team Providers Care Composite Mechanic Name Role Phone Sudhir Galvez MD Primary Care Provider [phone] Encounter Details Date Type Department Care Team (Latest Contact Info) Description 08/18/2021 Orders Only [facility] Scanning, Provider Social History Tobacco Use Types Packs/Day Years Used Date Smoking Tobacco: Never Assessed Comments Unknown Sex and Gender Information Value Date Recorded Sex Assigned at Not on file 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
--- OUTSIDE RECORDS SUMMARY | 2025-05-23 09:44 | XMS_ITS | Encounter Summary ---
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
--- OUTSIDE RECORDS SUMMARY | 2025-05-23 09:45 | XMS_ITS | Encounter Summary ---
Author Organization [facility] Address [address] [place] [address] Care Team Providers Care Risk Compliance Manager Name Role Phone Sudhir Galvez MD Primary Care Provider [phone] Encounter Details Date Type Department Care Team (Late st Contact Info) Description 01/08/2018 Orders Only [facility] [address] [place] [address] Scanning, Provider Social History Tobacco Use Types Packs/Day Years Used Date Smoking Tobacco: Never Assessed Comments Unknown Sex and Gender Information Value Date Recorded Sex Assigned at Not on file 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
--- OUTSIDE RECORDS SUMMARY | 2025-05-23 09:45 | XMS_ITS | Patient Health Record ---
Author Organization [facility] Address [address] [place], [place] [address] Care Team Providers Care Poultry Veterinarian Name Role Phone QUINCY BOOTH Unavailable [phone] Sudhir Galvez Unavailable Unavailable Reason For Referral No Information Medications Medication SIG (Take, Route, Frequency, Duration) Notes Start Date End Date Status aspirin 81 MG Delayed Release Oral Tablet [Aspir-Low] ORAL aspirin 81 MG Delayed Release Oral Tablet [Aspir-Low]Original Medicationaspirin 81 MG Delayed Release Oral Tablet [Aspir-Low] *Reorder from [employer] for eRx and Interaction Alerts* 4 Active amlodipine 10 MG Oral Tablet ORAL amlodipine 10 MG Oral TabletOriginal Medicationamlodipine 10 MG Oral Tablet *Reorder from [employer] for eRx and Interaction Alerts* 4 Active dicloxacillin 500 MG Oral Capsule ORAL dicloxacillin 500 MG Oral CapsuleOriginal Medicationdicloxacillin 500 MG Oral Capsule *Reorder from [employer] for eRx and Interaction Alerts* 4 Active Topiramate 25 MG Oral Tablet ORAL topiramate 25 MG Oral TabletOriginal Medicationtopiramate 25 MG Oral Tablet *Reorder from [employer] for eRx and Interaction Alerts* 5 Active Spironolactone 100 MG Oral Tablet ORAL spironolactone 100 MG Oral TabletOriginal Medicationspironolactone 100 MG Oral Tablet *Reorder from [employer] for eRx and Interaction Alerts* 4 Active acetaminophen 500 MG / hydrocodone bitartrate 5 MG Oral Capsule ORAL acetaminophen 500 MG / hydrocodone bitartrate 5 MG Oral CapsuleOriginal Medicationacetaminophen 500 MG / hydrocodone bitartrate 5 MG Oral Capsule *Reorder from [employer] for eRx and Interaction Alerts* 4 Active acetaminophen 24 MG/ML / codeine phosphate 2.4 MG/ML Oral Solution ORAL acetaminophen 24 MG/ML / codeine phosphate 2.4 MG/ML Oral SolutionOriginal Medicationacetaminophen 24 MG/ML / codeine phosphate 2.4 MG/ML Oral Solution *Reorder from [email or web address] for eRx and Interaction Alerts* 5 Active ropinirole 1 MG Oral Tablet ORAL ropinirole 1 MG Oral TabletOriginal Medicationropinirole 1 MG Oral Tablet *Reorder from [employer] for eRx and Interaction Alerts* 4 Active nortriptyline 10 MG Oral Capsule ORAL nortriptyline 10 MG Oral CapsuleOriginal Medicationnortriptyline 10 MG Oral Capsule *Reorder from [email or web address] for eRx and Interaction Alerts* 4 Active Plan Of Treatment No Information Insurance Providers Payer Name Payer Address Payer Phone Subscriber Number Group Number Insured Name Patient Relationship to Insured Coverage Start Date Coverage End Date Medicare Part B [place] [address] [place] [address] [id number] JAMMIE JACKSON Self - patient is the insured [employer] [address] [address] [place] [address] [id number] JAMMIE JACKSON Self - patient is the insured [facility] B [address] [place], [place] [id number] JAMMIE JACKSON Self - patient is the insured
[2025-05-23 10:43] LABS: Alanine Aminotransferase 22 U/L (6-35); Albumin Level 4.0 g/dL (3.5-5.1); Alkaline Phosphatase 58 U/L (38-126); Anion Gap 11 mmol/L (4-12); Aspartate Amino Transferase 22 U/L (14-36); Bilirubin,Total 0.7 mg/dL (0.2-1.3); Blood Urea Nitrogen 15 mg/dL (7-17); Calcium 9.8 mg/dL (8.4-10.2); Carbon Dioxide 21 mmol/L (22-30); Chloride 109 mmol/L (98-107); Estimated Glomerular Filt Rate 37; Glucose 114 mg/dL (65-110); Osmolality Calculated 293 mOsm/kg (285-295); Potassium 4.4 mmol/L (3.4-5.0); Sodium 141 mmol/L (137-145); Total Protein 6.1 g/dL (6.3-8.2)
[2025-05-24 15:09] LABS: Calcium, Ionized 5.2 mg/dL (4.5-5.6)
== END 2025-05-23 09:36 | disposition home or self-care (01) ==
LOC: CHSLAB 09:41
PROVIDERS: PCP Internal Medicine; Visit Provider Internal Medicine
DX: E83.52 Hypercalcemia (principal); E86.0 Dehydration
CPT/HCPCS: 36415; 80053; 82330; 83970; 84100

== ENCOUNTER 2025-05-29 12:10 | Outpatient (CLI) | payer MEDICARE, SELFPAY ==
--- OUTSIDE RECORDS SUMMARY | 2025-05-29 12:22 | XMS_ITS | Encounter Summary ---
Author Organization [facility] Address [address] [place] [address] Phone Care Team Providers Care Dry Plasterer Helper Name Role Phone Sudhir Galvez MD Primary Care Provider [phone] Encounter Details Date Type Department Care Team (Latest Contact Info) Description 08/18/2021 Orders Only [facility] Scanning, Provider Social History Tobacco Use Types Packs/Day Years Used Date Smoking Tobacco: Never Assessed Comments Unknown Sex and Gender Information Value Date Recorded Sex Assigned at Not on file 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
--- OUTSIDE RECORDS SUMMARY | 2025-05-29 12:22 | XMS_ITS | Encounter Summary ---
Author Organization 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
--- OUTSIDE RECORDS SUMMARY | 2025-05-29 12:22 | XMS_ITS | Encounter Summary ---
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
--- OUTSIDE RECORDS SUMMARY | 2025-05-29 12:22 | XMS_ITS | Encounter Summary ---
Author Organization 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
--- OUTSIDE RECORDS SUMMARY | 2025-05-29 12:22 | XMS_ITS | Patient Health Record ---
Author Organization [facility] Address [address] [place], [place] [address] Care Team Providers Care Band Leader Name Role Phone QUINCY BOOTH Unavailable [phone] Sudhir Galvez Unavailable Unavailable Reason For Referral No Information Medications Medication SIG (Take, Route, Frequency, Duration) Notes Start Date End Date Status aspirin 81 MG Delayed Release Oral Tablet [Aspir-Low] ORAL aspirin 81 MG Delayed Release Oral Tablet [Aspir-Low]Original Medicationaspirin 81 MG Delayed Release Oral Tablet [Aspir-Low] *Reorder from [employer] for eRx and Interaction Alerts* 4 Active amlodipine 10 MG Oral Tablet ORAL amlodipine 10 MG Oral TabletOriginal Medicationamlodipine 10 MG Oral Tablet *Reorder from [employer] for eRx and Interaction Alerts* 4 Active dicloxacillin 500 MG Oral Capsule ORAL dicloxacillin 500 MG Oral CapsuleOriginal Medicationdicloxacillin 500 MG Oral Capsule *Reorder from [employer] for eRx and Interaction Alerts* 4 Active Topiramate 25 MG Oral Tablet ORAL topiramate 25 MG Oral TabletOriginal Medicationtopiramate 25 MG Oral Tablet *Reorder from [employer] for eRx and Interaction Alerts* 5 Active Spironolactone 100 MG Oral Tablet ORAL spironolactone 100 MG Oral TabletOriginal Medicationspironolactone 100 MG Oral Tablet *Reorder from [employer] for eRx and Interaction Alerts* 4 Active acetaminophen 500 MG / hydrocodone bitartrate 5 MG Oral Capsule ORAL acetaminophen 500 MG / hydrocodone bitartrate 5 MG Oral CapsuleOriginal Medicationacetaminophen 500 MG / hydrocodone bitartrate 5 MG Oral Capsule *Reorder from [employer] for eRx and Interaction Alerts* 4 Active acetaminophen 24 MG/ML / codeine phosphate 2.4 MG/ML Oral Solution ORAL acetaminophen 24 MG/ML / codeine phosphate 2.4 MG/ML Oral SolutionOriginal Medicationacetaminophen 24 MG/ML / codeine phosphate 2.4 MG/ML Oral Solution *Reorder from [employer] for eRx and Interaction Alerts* 5 Active ropinirole 1 MG Oral Tablet ORAL ropinirole 1 MG Oral TabletOriginal Medicationropinirole 1 MG Oral Tablet *Reorder from [employer] for eRx and Interaction Alerts* 4 Active nortriptyline 10 MG Oral Capsule ORAL nortriptyline 10 MG Oral CapsuleOriginal Medicationnortriptyline 10 MG Oral Capsule *Reorder from [employer] for eRx and Interaction Alerts* 4 Active Plan Of Treatment No Information Insurance Providers Payer Name Payer Address Payer Phone Subscriber Number Group Number Insured Name Patient Relationship to Insured Coverage Start Date Coverage End Date Medicare Part B [place] [address] [place] [address] [id number] JAMMIE JACKSON Self - patient is the insured [employer] [address] [address] [place] [address] [id number] JAMMIE JACKSON Self - patient is the insured [facility] [address] [place], [place] [id number] AJMMIE JACKSON Self - patient is the insured
--- OUTSIDE RECORDS SUMMARY | 2025-05-29 12:22 | XMS_ITS | Encounter Summary ---
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
--- OUTSIDE RECORDS SUMMARY | 2025-05-29 12:22 | XMS_ITS | Clinical Summary ---
Author Organization [facility] Address [address] [place] [address] Phone Care Team Providers Care Research And Development Director Name Role Phone Sudhir Galvez MD Primary Care Provider [phone] Allergies No known active allergies Medications amLODIPine [...] for Constipation. 60 Capsule 09/06/2023 4:01 PM ROCKBOARD LATHER 3 Active ferrous sulfate 325 mg (65 [...] mouth daily. 60 Capsule 09/06/2023 4:01 PM ROCKBOARD LATHER 3 Active ascorbic acid, vitamin C, (VITAMIN C) 250 mg tablet Take 1 Tablet (250 mg) by mouth 2 times daily. 60 Tablet 3 Active ondansetron (ZOFRAN ODT) 4 mg Tablet, Rapid Dissolve Take 1 Tablet (4 mg) by mouth every 8 hours as needed for Nausea/Emesis . Dissolve tablet on top of tongue, then swallow with saliva. 30 Tablet 09/06/2023 4:01 PM ROCKBOARD LATHER 3 Active Active Problems Patient Care Coordination [...] PNEUM OCOCCAL CONJUGATE VACCINE 20-VALENT (PCV20), POLYSACCHARIDE ILB740 CONJUGATE, ADJUVANT 0.5 ML (PF) IM 09/06/2023 [...] on file Legal Sex Female 4:21 PM ROCKBOARD LATHER Gender Identity Not on file Sexual Orientation Not on file Last Filed Vital Signs Vital Sign Reading Time Taken Comments Blood Pressure 112/67 09/06/2023 11:18 AM ROCKBOARD LATHER Pulse 78 09/06/2023 11:18 AM ROCKBOARD LATHER Temperature 36.5 C (97.7 F) 09/06/2023 11:18 AM ROCKBOARD LATHER Respiratory Rate 17 09/06/2023 11:18 AM ROCKBOARD LATHER Oxygen Saturation 95% 09/06/2023 11:18 AM ROCKBOARD LATHER Inhaled Oxygen Concentration - - Weight 87.2 kg (192 lb 3.2 oz) 09/04/2023 1:51 A M ROCKBOARD LATHER Height 154.9 cm (5' 1) 09/04/2023 1:51 AM ROCKBOARD LATHER Body Mass Index 36.32 09/04/2023 1:51 AM ROCKBOARD LATHER Plan of Treatment Health Maintenance Due Date [...] Comments COLONOSCOPY REPORT 09/05/2023 4: 44 PM ROCKBOARD LATHER from Last 3 Months or Most Recently Relevant to Health Maintenance Results * COLONOSCOPY REPORT (09/05/2023 4:44 PM ROCKBOARD LATHER) Narrative Procedure Note Teo Wolfe MD - 09/05/2023 4:44 PM [facility]ST [facility] GI Patient Name: Meredith Boss Procedure [...] bowel preparation was evaluated using the BBPS ([place] Bowel Preparation Scale) with scores of: Right [...] clinical course at that time). - A [employer] message and/or a letter will be sent to you summarizing the pathology results. Please call the GI office ([phone]) if you have not heard the results within 2 weeks. - Goal intake of 20-25 grams of fiber per day. This is a combination of dietary fiber (located on nutrition label) as well as supplemental fiber (for example Citrucel, Fibercon, Konsyl or Metamucil) if needed. - Follow-up with local primary MD in [place]. If no improvement in anemia can consider referral to local GI for consideration of video capsule endoscopy. Procedure Code(s): --- Professional --- 70200, Colonoscopy, flexible; with removal of tumor(s), polyp(s), or other lesion(s) by snare technique Diagnosis Code(s): --- Professional --- D12.8, Benign neoplasm of rectum D12.2, Benign neoplasm of ascending colon K92.1, Melena (includes Hematochezia) D50.0, Iron deficiency anemia secondary to blood loss (chronic) CPT copyright 2020 [employer]. All rights reserved. The codes documented in this report are preliminary and upon sap basis architect review may be revised to meet current compliance requirements. Teo Wolfe MD 09/05/2023 4:44:03 PM Number of Addenda: 0 Estimated Blood Loss: Estimated blood loss: none. us Teo Wolfe MD GI PROCEDURE ORDERABL ES Final Result from Last 3 Months or Most Recently Relevant to Health Maintenance Insurance MEDICARE PART A AND B [place] [employer] RX Member Subscriber Plan / Payer (Ef fective 2011-Present) Name:Meredith Boss Relation to Subscriber:Self Name:Meredith Boss Payer ID:Not on file Group ID:[id number] Type:RX Medicare Part D [address] MEDICARE PART A AND B [place] [employer] [facility] Advance Directives For more information, please contact: [phone] * Full Code (Latest Code Status on File) Date Activated Date Inactivated Comments 09/03/2023 11:59 PM 09/06/2023 5:42 PM * Default Full Code - Needs Discussion Date Activated Date Inactivated Comments 09/03/2023 11:25 PM 09/03/2023 11:59 PM Care Teams Research And Development Director Relationship Specialty Start Date End Date Sudhir Galvez MD [address] [place] [address] PCP - General Internal Medicine 09/04/23
--- OUTSIDE RECORDS SUMMARY | 2025-05-29 12:22 | XMS_ITS | Encounter Summary ---
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
--- OUTSIDE RECORDS SUMMARY | 2025-05-29 12:22 | XMS_ITS | Encounter Summary ---
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
--- OUTSIDE RECORDS SUMMARY | 2025-05-29 12:22 | XMS_ITS | Clinical Summary ---
Author Organization [facility] [address] Address [address] [place] [address] Care Team Providers Care Dispute Specialist Name Role Phone Sudhir Galvez MD Primary Care Provider [phone] Allergies Active Allergy Reactions Criticality Noted Date Comments Adhesive Blisters High 12/20/2021 Adhesive Tape-Silicones Rash High 12/20/2021 Bleach (Sodium Hypochlorite) Rash Medium 022 Latex Rash Medium 05/06/2025 Zdbszrec-Qziamwbumd-Xramjtmcn Blisters High 2021 Medications acetaminophen-c odeine (TYLENOL [...] Diagnosed Date Coronary artery disease invo [place] coronary artery of [place] heart without angina pectoris 03/19/2023 HTN (hypertension), benign 09/25/2022 Dyslipidemia 09/25/2022 Encounters Date Type Department Care Team Description 05/06/2025 1:00 PM CDT Office Visit [facility] Medicine Surgery [address] [place] [address] Pam Nicholas MD Cholelithiasis without cholecystitis 04/24/2025 10:56 AM CDT - 04/24/2025 11:59 PM CDT Hospital Encounter [facility] [address] [place] [address] Discharge Disposition: Discharge to home or self care 04/24/2025 10:55 AM CDT - 04/24/2025 11:59 PM CDT Hospital Encounter [facility]) [address] [place] [address] Discharge Disposition: Discharge to home or self care 04/24/2025 10:54 AM CDT - 04/24/2025 11:59 PM CDT Hospital Encounter [facility] ([facility]) [address] [place] [address] Discharge Disposition: Discharge to home or self care 04/24/2025 10:43 AM CDT - 04/24/2025 11:59 PM CDT Hospital Encounter [facility] ([facility]) [address] [place] [address] Discharge Disposition: Discharge to home or self care 04/24/2025 10:35 AM CDT - 04/24/2025 11:59 PM CDT Hospital Encounter [facility] ([facility]) [address] [place] [address] Discharge Disposition: Discharge to home or self [...] on file 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 There will be no report generated by a [facility] Radiologist. Narrative [facility] - 04/24/2025 10:56 AM CDT EXAMINATION: Images For Reference Purposes Only us Pam Nicholas MD IMG CT PROCEDURES F inal Result Performing Organization Address [facility] Co de Phone Number [email or web address] * Neuro CT Outside Reference (04/24/2025 10:55 AM CDT) Impressions [facility] - 04/24/2025 10:55 AM CDT These images [...] PROCEDURES F inal Result Performing Organization Address [facility] Co de Phone Number [email or web address] * [...] PROCEDURES F inal Result Performing Organization Address [facility] Co de Phone Number [email or web address] * [...] PROCEDURES F inal Result Performing Organization Address [facility] Co de Phone Number [email or web address] from Last 3 Months Insurance [employer] MEDICARE MEDICARE [facility] MEDICARE [facility] Advance Directives For more information, please contact: [phone] * Full Code (Latest Code Status on File) Date Activated Date Inactivated Comments 12/22/2021 6:13 PM 12/23/2021 12:12 AM Care Teams Dispute Specialist Relationship Specialty Start Date End Date Sudhir Galvez MD PCP - General Internal Medicine 12/07/17
--- OUTSIDE RECORDS SUMMARY | 2025-05-29 12:22 | XMS_ITS | Encounter Summary ---
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
--- OUTSIDE RECORDS SUMMARY | 2025-05-29 12:22 | XMS_ITS | Encounter Summary ---
Author Organization [facility] Address [address] [place] [address] Care Team Providers Care Blanket Binder Name Role Phone Sudhir Galvez MD Primary Care Provider [phone] Encounter Details Date Type Department Care Team (Late st Contact Info) Description 01/08/2018 Orders Only [facility] Health Information Management [address] [place] [address] Scanning, Provider Social History Tobacco Use Types Packs/Day Years Used Date Smoking Tobacco: Never Assessed Comments Unknown Sex and Gender Information Value Date Recorded Sex Assigned at Not on file 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
--- OUTSIDE RECORDS SUMMARY | 2025-05-29 12:22 | XMS_ITS | Encounter Summary ---
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
[2025-05-29 12:31] LABS: Hematocrit 35.3 % (35.0-42.0); Hemoglobin 11.5 g/dL (11.7-13.8); Mean Corpuscular HGB Conc 32.6 g/dL (32-36); Mean Corpuscular Hemoglobin 30.7 pg (27.0-31.0); Mean Corpuscular Volume 94.4 fL (78.0-102.0); Platelet Count Result 211 K/mm3 (150-420); Red Blood Count 3.74 M/mm3 (4.20-5.40); White Blood Count 9.4 K/mm3 (4.8-10.8)
[2025-05-29 13:03] LABS: Alanine Aminotransferase 19 U/L (6-35); Albumin Level 4.1 g/dL (3.5-5.1); Alkaline Phosphatase 70 U/L (38-126); Anion Gap 9 mmol/L (4-12); Aspartate Amino Transferase 20 U/L (14-36); Bilirubin,Total 0.4 mg/dL (0.2-1.3); Blood Urea Nitrogen 19 mg/dL (7-17); Calcium 9.9 mg/dL (8.4-10.2); Carbon Dioxide 23 mmol/L (22-30); Chloride 110 mmol/L (98-107); Estimated Glomerular Filt Rate 46; Glucose 86 mg/dL (65-110); Osmolality Calculated 295 mOsm/kg (285-295); Potassium 4.7 mmol/L (3.4-5.0); Sodium 142 mmol/L (137-145); Total Protein 6.1 g/dL (6.3-8.2)
== END 2025-05-29 12:11 | disposition home or self-care (01) ==
PROVIDERS: PCP Internal Medicine; Visit Provider Internal Medicine
DX: E86.0 Dehydration (principal)
CPT/HCPCS: 36415; 80053; 85027